=== PATIENT | male | born 1975 | race Caucasian/White ===

== ENCOUNTER 2018-12-21 12:26 | Emergency (ER) | payer BC, OTHER ==
[~2018-12-21] VITALS: Ht 180.3 cm; Wt 155.6 kg
--- OUTSIDE RECORDS SUMMARY | 2018-12-21 12:32 | XMS REPORT ---
Author Author JAMESONMAKICOSME Organization [facility] Address [address] [place] [address] Care Team Providers Care Padded Box Sewer Name Role Phone COSME BARBA Unavailable PROBLEMS Type Condition ICD9-CM Code [id number] Code Onset Dates Condition Status SNOMED Code Problem Primary osteoarthritis of right knee M17.11 Active 096256328 Problem Dental caries K02.9 Active 76221765 Problem Type 2 diabetes mellitus without complications E11.9 Active 46953382 Problem Low HDL (under 40) E78.6 Active 794494369 Problem Morbid (severe) obesity due to excess calories E66.01 Active 535206451 Problem Body mass index (BMI) of 50-59.9 in adult Z68.43 Active 702635234 Problem Tobacco abuse counseling Z71.6 Active 786494887 Problem Tobacco abuse Z72.0 Active 54458672 Problem Essential hypertension I10 Active 88834785 Problem Primary insomnia F51.01 Active 8328899 ALLERGIES No Known Allergies ENCOUNTERS Encounter Location Date Diagnosis [facility] [address] [place] [address]5064- 1196 Nov, [facility] [id number] [place] [address] 89765- 8680 Sep, [facility] [id number] [place] [address] 86422- 6022 Aug, Type 2 diabetes mellitus without complications E11.9 ; BMI 50.0-59.9, adult Z68.43 ; Essential hypertension I10 ; Primary osteoarthritis of right knee M17.11 and Primary insomnia F51.01 [facility] [id number] [place] [address] 50126- 4040 Aug, Type 2 diabetes mellitus without complications E11.9 [facility] [id number] [place] [address] 95540- 0336 Jul, [facility] [id number] [id number] May, Dental examination Z01.20 [facility] [address], [place] [address] May, Type 2 diabetes mellitus without complications E11.9 ; Essential hypertension I10 ; Dental caries K02.9 and Morbid obesity with BMI of 45.0-49.9, adult Z68.42 [place] [address], [place] [address] Apr, [place] [address] [place] [address] 28997- 4432 Apr, [place] [address], [place] [address] Mar, Type 2 diabetes mellitus without complications E11.9 [place] [address] [place] [address] 13219- 7202 Jan, Type 2 diabetes mellitus without complications E11.9 ; Tobacco abuse counseling Z71.6 ; Tobacco abuse Z72.0 ; Morbid obesity with BMI of 45.0-49.9, adult Z68.42 and Essential hypertension I10 [place] [address], [place] [address] Jan, [place] [address], [place] [address] December, [place] [address], [place] [address] Oct, [place] [address], [place] [address] 79[address] Oct, Type 2 diabetes mellitus without complications E11.9 ; Essential hypertension I10 ; Morbid obesity with BMI of 45.0-49.9, adult Z68.42 and Abscess L02.91 [place] [address], [place] [address] Sep, Type 2 diabetes mellitus without complications E11.9 [facility] [address], [place] [address] 8[address] Sep, Type 2 diabetes mellitus without complications E11.9 [facility] [address], [place] [address] 7[address] Aug, [facility] [address] [place] [address] 23313- 8590 Aug, [facility] [address], [place] [address] 97[address] Aug, [facility] [id number] [place] [address] 53073- 1431 Jul, [facility] [address], [place] [address] 60[address] Jun, Type 2 diabetes mellitus without complications E11.9 ; Morbid obesity with BMI of 45.0-49.9, adult Z68.42 ; Primary insomnia F51.01 and Abscess L02.91 [facility] [address], [place] [address] May, [facility] [address], [place] [address] 2[address] Apr, [facility] [address], [place] [address] 1466 Apr, [facility] [address], [place] [address] 8027 Feb, [facility] [address], [place] [address] 9[address] Jan, [facility] [address] [address] 5[address] Jan, [facility] [address], [place] [address] 3[address] Jan, [facility] [address], [place] [address]- [address] 14 Jan, 2016 Pain in right knee M25.561 and Other chronic pain G89.29 [facility] [address] [address] Jan, Morbid obesity with BMI of 45.0-49.9, adult Z68.42 ; Type 2 diabetes mellitus without complications E11.9 ; Pain in right knee M25.561 and Other chronic pain G89.29 [facility] [address], [place] [address] Jan, [facility] [address], [place] [address] December, [facility] [address], [place] [address] 09[address] December, [facility] [address], [place] [address]- 3469 December, [facility] [address], [place] [address] 9[address] December, [facility] [address], [place] [address] December, [facility] [address], [place] [address] 60[address] December, Routine health maintenance Z00.00 ; Morbid obesity with BMI of 45.0-49.9, adult Z68.42 ; Type 2 diabetes mellitus without complications E11.9 ; Anxiety F41.9 ; Dental caries K02.9 ; Family history of diabetes mellitus Z83.3 ; Family history of hypertension Z82.49 ; Family history of cancer Z80.9 ; Tobacco abuse counseling Z71.6 and Tobacco abuse Z72.0 IMMUNIZATIONS No Known Immunizations SOCIAL HISTORY Never Assessed REASON FOR VISIT Diabetes, no other concerns- Mk CLINE PLAN OF CARE Activity Details Follow Up 3 Months Reason:DM visit VITAL SIGNS Height 70 in 2017-02-06 Weight 348.2 lbs 2017-02-06 Temperature 98.5 degrees Fahrenheit 2017-02-06 Heart Rate 74 bpm 2017-02-06 Respiratory Rate 18 2017-02-06 BMI 49.96 kg/m2 2017-02-06 Blood pressure systolic 128 mmHg 2017-02-06 Blood pressure diastolic 80 mmHg 2017-02-06 MEDICATIONS Medication Instructions Dosage Frequency Start Date End Date Duration Status GlipiZIDE 10 mg Orally Once a day at hs 1 tablet Jan, 90 days Active Cozaar 25 MG Orally Once a day 1/2 tablet 24h Jan, Active GlipiZIDE 5 mg Orally Once a day 2 tablet 24h 90 days Active Metformin HCl 1000 MG Orally Twice a day 1 tablet with meals 12h 90 days Active Toudereko SoloStar 300 UNIT/ML Subcutaneous at bedtime 50 units Active RESULTS Name Result Date Reference Range A1C (IN HOUSE) 2017-02-06 A1C IN HOUSE 8.7 4.3 - 5.6 % Previous A1c 8.1 Lot 0716 Exp date 10/2018 THYROID ANALYZER 2017-02-06 TSH 1.970 0.450-4.500 CBC 2017-02-06 WBC 9.9 3.4-10.8 RBC 5.01 4.14-5.80 Hemoglobin 14.2 12.6-17.7 Hematocrit 43.7 37.5-51.0 MCV 87 79-97 MCH 28.3 26.6-33.0 MCHC 32.5 31.5-35.7 RDW 13.6 12.3-15.4 Platelets 201 150-379 Neutrophils 67 Lymphs 21 Monocytes 7 Eos 5 Basos 0 Neutrophils (Absolute) 6.6 1.4-7.0 Lymphs (Absolute) 2.1 0.7-3.1 Monocytes(Absolute) 0.7 0.1-0.9 Eos (Absolute) 0.5 0.0-0.4 Baso (Absolute) 0.0 0.0-0.2 Immature Granulocytes 0 Immature Grans (Abs) 0.0 0.0-0.1 LIPID PANEL 2017-02-06 Cholesterol, Total 137 100-199 Triglycerides 124 0-149 HDL Cholesterol 28 >39 VLDL Cholesterol Jhony 25 5-40 LDL Cholesterol Calc 84 0-99 CMP 2017-02-06 Glucose, Serum 159 65-99 BUN 9 6-24 Creatinine, Serum 0.77 0.76-1.27 eGFR If NonAfricn Am 111 >59 eGFR If Africn Am 128 >59 BUN/Creatinine Ratio 12 9-20 Sodium, Serum 142 134-144 Potassium, Serum 4.8 3.5-5.2 Chloride, Serum 102 96-106 Carbon Dioxide, Total 22 18-29 Calcium, Serum 9.3 8.7-10.2 Protein, Total, Serum 6.5 6.0-8.5 Albumin, Serum 4.3 3.5-5.5 Globulin, Total 2.2 1.5-4.5 A/G Ratio 2.0 1.2-2.2 Bilirubin, Total 0.5 0.0-1.2 Alkaline Phosphatase, S 79 39-117 AST (SGOT) 25 0-40 ALT (SGPT) 20 0-44 PROCEDURES Procedure Date Ordered Result Body Site GLYCATED HEMOGLOBIN TEST February 06, 2017 COMPLETE CBC W/AUTO DIFF WBC February 06, 2017 VENIPUNCT, ROUTINE* February 06, 2017 ASSAY THYROID STIM HORMONE February 06, 2017 COMPREHEN METABOLIC PANEL February 06, 2017 LIPID PANEL February 06, 2017 INSTRUCTIONS MEDICATIONS ADMINISTERED No Known Medications MEDICAL (GENERAL) HISTORY Type Description Date Medical History diabetes mellitus Medical History depression Medical History hypertension Medical History Anxiety Surgical History skin infection removal- fungal type-was on microfungin and wound vac to the right abdomen- one also on the left abdomen Hospitalization History Surgery only
--- OUTSIDE RECORDS SUMMARY | 2018-12-21 12:33 | XMS REPORT ---
Author Author JAMESONCOSME Organization [facility] Address [address] [place] [address] Care Team Providers Care Global Supply Chain Director Name Role Phone COSME BARBA Unavailable PROBLEMS Type Condition ICD9-CM Code EPG24-ET Code Onset Dates Condition Status SNOMED Code Problem Primary osteoarthritis of right knee M17.11 Active 389356852 Problem Dental caries K02.9 Active 81590510 Problem Type 2 diabetes mellitus without complications E11.9 Active 14599205 Problem Low HDL (under 40) E78.6 Active 115068331 Problem Morbid (severe) obesity due to excess calories E66.01 Active 848728505 Problem Body mass index (BMI) of 50-59.9 in adult Z68.43 Active 732122249 Problem Tobacco abuse counseling Z71.6 Active 880465096 Problem Tobacco abuse Z72.0 Active 49814188 Problem Essential hypertension I10 Active 11360025 Problem Primary insomnia F51.01 Active 7861964 ALLERGIES No Information ENCOUNTERS Encounter Location Date Diagnosis [place] [address] [place] [address] 36716- 9863 Mar, [place] [id number] [place] [address] 20219- 8457 December, Type 2 diabetes mellitus without complications E11.9 [facility] [id number] [place] [address] 41505- 5157 December, [place] [address] [address]- 2809 Nov, Type 2 diabetes mellitus without complications E11.9 [place] [id number] [place] [address] 91168- 9637 Nov, Type 2 diabetes mellitus without complications E11.9 ; BMI 45.0-49.9, adult Z68.42 ; Essential hypertension I10 ; Tobacco abuse Z72.0 and Tobacco abuse counseling Z71.6 [place] [id number] [place] [address] 71768- 0981 Nov, Type 2 diabetes mellitus without complications E11.9 [place] [id number] [place] [address] 30680- 2219 Sep, [place] [address] [address]- 1262 Aug, Type 2 diabetes mellitus without complications E11.9 ; BMI 50.0-59.9, adult Z68.43 ; Essential hypertension I10 ; Primary osteoarthritis of right knee M17.11 and Primary insomnia F51.01 [place] [id number] [place] [address] 71163- 6450 Aug, Type 2 diabetes mellitus without complications E11.9 [place] [id number] [place] [address] 06176- 0277 Jul, [facility] [id number] [place] [address] [id number] May, Dental examination Z01.20 [place] [id number] [place] [address] 10288- 5624 May, Type 2 diabetes mellitus without complications E11.9 ; Essential hypertension I10 ; Dental caries K02.9 and Morbid obesity with BMI of 45.0-49.9, adult Z68.42 [place] [id number] [place] [address] 62847- 9306 Apr, [place] [id number] [place] [address] 95988- 4390 Apr, [place] [id number] [place] [address] 08010- 5493 Mar, Type 2 diabetes mellitus without complications E11.9 [place] [id number] [place] [address] 82442- 7782 Jan, Type 2 diabetes mellitus without complications E11.9 ; Tobacco abuse counseling Z71.6 ; Tobacco abuse Z72.0 ; Morbid obesity with BMI of 45.0-49.9, adult Z68.42 and Essential hypertension I10 [place] [id number] [place] [address] 29380567- 0566 Jan, [facility] [id number] [place] [address] 70059- 1720 December, [place] [id number] [place] [address] 32941- 2798 Oct, [place] [id number] [place] [address] 80292- 7377 Oct, Type 2 diabetes mellitus without complications E11.9 ; Essential hypertension I10 ; Morbid obesity with BMI of 45.0-49.9, adult Z68.42 and Abscess L02.91 [place] [id number] [place] [address] 28498- 1413 Sep, Type 2 diabetes mellitus without complications E11.9 [place] [id number] [place] [address] 50595- 6153 Sep, Type 2 diabetes mellitus without complications E11.9 [place] [id number] [place] [address] 80864- 6193 Aug, [place] [address], [place] [address]- 7908 Aug, [place] [address], [place] [address]- 9054 Aug, [place] [address], [place] [address]- 4672 Jul, [place] [id number] [place] [address] 45577- 3686 Jun, Type 2 diabetes mellitus without complications E11.9 ; Morbid obesity with BMI of 45.0-49.9, adult Z68.42 ; Primary insomnia F51.01 and Abscess L02.91 [place] [address] [place] May, [facility] [address] [address]69 Apr, [facility] [address] [facility] [id number] [address] Apr, [facility] [address] [address] Feb, [facility] [id number], [place] [address]- 2187 Jan, [facility] [address] 8498 Jan, [facility] [address], [place] [address]- 4231 Jan, [facility] [address], [place] [address]- 4119 Jan, Pain in right knee M25.561 and Other chronic pain G89.29 [facility] [id number], [place] [address]- 8632 Jan, Morbid obesity with BMI of 45.0-49.9, adult Z68.42 ; Type 2 diabetes mellitus without complications E11.9 ; Pain in right knee M25.561 and Other chronic pain G89.29 [facility] [id number], [place] [address]- 5534 Jan, [facility] [id number], [place] [address]- 8473 December, [facility] [address] 0797 December, [facility] [address] 35[address] December, [facility] [id number] 7696 December, [facility] [address] [facility] [place] [id number] [address]- 5689 December, [facility] [address] [facility] [place] [id number] [address] 1989 December, Routine health maintenance Z00.00 ; Morbid [...] SOCIAL HISTORY Never Assessed REASON FOR VISIT PALS in - Touo PLAN OF CARE VITAL SIGNS MEDICATIONS Unknown Medications RESULTS No Results PROCEDURES No Known procedures INSTRUCTIONS MEDICATIONS ADMINISTERED No Known Medications MEDICAL (GENERAL) HISTORY Type Description Date Medical History diabetes mellitus Medical History depression Medical History hypertension Medical History Anxiety Surgical History skin infection removal- fungal type-was on microfungin and wound vac to the right abdomen- one also on the left abdomen Hospitalization History Surgery only
--- OUTSIDE RECORDS SUMMARY | 2018-12-21 12:33 | XMS REPORT ---
Author Author COSME BARBA Organization [facility] Address [address] [place] [address] Care Team Providers Care Manager Purchasing Name Role Phone BARBACOSME Rhodes Unavailable PROBLEMS Type Condition ICD9-CM Code GOQ03-EP Code Onset Dates Condition Status SNOMED Code Problem Dental caries K02.9 Active 95797140 Problem Tobacco abuse counseling Z71.6 Active 455877209 Problem Tobacco abuse Z72.0 Active 93965665 Problem Low HDL (under 40) E78.6 Active 204093352 Problem Primary osteoarthritis of right knee M17.11 Active 461138500 Problem Type 2 diabetes mellitus with hyperglycemia E11.65 Active 61510488 Problem Morbid (severe) obesity due to excess calories E66.01 Active 009730327 Problem Essential hypertension I10 Active 49785758 Problem Primary insomnia F51.01 Active 6128805 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 Active 841162090 Problem Body mass index (BMI) of 45.0-49.9 in adult Z68.42 Active 062407941 ALLERGIES No Information ENCOUNTERS Encounter Location Date Diagnosis [place] [id number] [place] [address]- [address]209 Apr, [facility] [id number] [place] [address] 50997- 1297 Mar, Type 2 diabetes mellitus with hyperglycemia E11.65 ; USP current use of insulin Z79.4 ; Body mass index (BMI) of 45.0-49.9 in adult Z68.42 ; Morbid (severe) obesity due to excess calories E66.01 ; Low HDL (under 40) E78.6 ; Right flank pain R10.9 and Essential hypertension I10 [facility] [id number] [address] December, Type 2 diabetes mellitus without complications E11.9 [place] [address] [address] December, [place] [address] [address] [id number] [place] [address] 69071- 8071 Nov, Type 2 diabetes mellitus without complications E11.9 [place] [address] [place] [id number] [place] [address] 40877- 4544 Nov, Type 2 diabetes mellitus without complications E11.9 ; BMI 45.0-49.9, adult Z68.42 ; Essential hypertension I10 ; Tobacco abuse Z72.0 and Tobacco abuse counseling Z71.6 [place] [address] [address] [id number] [place] [address] 65579- 2241 Nov, Type 2 diabetes mellitus without complications E11.9 [place] [address] [id number] [place] [address] 81512- 4923 Sep, [place] [address] [address] [id number] [place] [address] 50037- 6056 Aug, Type 2 diabetes mellitus without complications E11.9 ; BMI 50.0-59.9, adult Z68.43 ; Essential hypertension I10 ; Primary osteoarthritis of right knee M17.11 and Primary insomnia F51.01 [place] [address] [address] [id number] [place] [address] 82013- 7344 Aug, Type 2 diabetes mellitus without complications E11.9 [place] [address], [place] [address] Jul, [facility] [address] [place] [address] [id number] May, Dental examination Z01.20 [place] [address] [address] [id number] [place] [address] 68397- 2676 May, Type 2 diabetes mellitus without complications E11.9 ; Essential hypertension I10 ; Dental caries K02.9 and Morbid obesity with BMI of 45.0-49.9, adult Z68.42 [place] [address] [address] [id number] [place] [address] 58041- 1626 Apr, [facility] [address], [place] [address] 90[address] Apr, [facility] [address] [place] [address] 91099- 1175 Mar, Type 2 diabetes mellitus without complications E11.9 [facility] [id number] [place] [address] 71681- 7893 Jan, Type 2 diabetes mellitus without complications E11.9 ; Tobacco abuse counseling Z71.6 ; Tobacco abuse Z72.0 ; Morbid obesity with BMI of 45.0-49.9, adult Z68.42 and Essential hypertension I10 [place] [address] [id number] [place] [address] 50159- 4102 Jan, [facility] [id number] [place] [address] 50749- 4058 December, [facility] [id number] [place] [address] 82543- 2070 Oct, [facility] [address] [place] [address] 08359- 8363 Oct, Type 2 diabetes mellitus without complications E11.9 ; Essential hypertension I10 ; Morbid obesity with BMI of 45.0-49.9, adult Z68.42 and Abscess L02.91 [facility] [address], [place] [address] 22[address] Sep, Type 2 diabetes mellitus without complications E11.9 [facility] [address], [place] [address] 9568 Sep, Type 2 diabetes mellitus without complications E11.9 [facility] [id number], [place] [address] 7[address] Aug, [facility] [address], [place] [address] 0143 Aug, [facility] [id number] [place] [address] 86366- 2051 Aug, [facility] [address], [place] [address] 7278 Jul, [facility] [address], [place] [address] 8723 Jun, Type 2 diabetes mellitus without complications E11.9 ; Morbid obesity with BMI of 45.0-49.9, adult Z68.42 ; Primary insomnia F51.01 and Abscess L02.91 [facility] [address], [place] [address] 48[address] May, [facility] [id number] [place] [address] 64230- 0340 Apr, [facility] [id number] [place] [address] 34452- 8755 Apr, [facility] [id number] [place] [address] 29965- 1252 Feb, [facility] [address], [place] [address]- 4991 Jan, [facility] [id number], [place] [address] 5517 Jan, [facility] [address], [place] [address]- 8091 Jan, [facility] [address] [place] [address]- 4608 14 Jan, 2016 Pain in right knee M25.561 and Other chronic pain G89.29 [facility] [address], [place] [address] 7162 03 Jan, 2016 Morbid obesity with BMI of 45.0-49.9, adult Z68.42 ; Type 2 diabetes mellitus without complications E11.9 ; Pain in right knee M25.561 and Other chronic pain G89.29 [facility] [address], [place] [address]- 4335 Jan, [facility] [address] [facility] [id number], [place] [address] 2[address] December, [facility] [id number], [place] [address] 4431 December, [facility] [id number], [place] [address]- 4495 December, [facility] [address] [facility] [id number], [place] [address]- 2267 December, [facility] [address] [facility] [id number], [place] [address]- 6288 December, [facility] [id number], [place] [address] 0721 December, Routine health maintenance Z00.00 ; Morbid [...] Assessed [facility] VITAL SIGNS MEDICATIONS Unknown [...]
--- OUTSIDE RECORDS SUMMARY | 2018-12-21 12:33 | XMS REPORT ---
Author Author COSME BARBA Organization [facility] Address [address] [place] [address] Care Team Providers Care Medical Bill Processor Name Role Phone BARBACOSME Rhodes Unavailable PROBLEMS Type Condition ICD9-CM Code KIQ64-LD Code Onset Dates Condition Status SNOMED Code Problem Dental caries K02.9 Active 42742077 Problem Tobacco abuse counseling Z71.6 Active 028319231 Problem Tobacco abuse Z72.0 Active 24101532 Problem Low HDL (under 40) E78.6 Active 768525270 Problem Primary osteoarthritis of right knee M17.11 Active 127047071 Problem Type 2 diabetes mellitus with hyperglycemia E11.65 Active 75298400 Problem Morbid (severe) obesity due to excess calories E66.01 Active 317375931 Problem Essential hypertension I10 Active 08490590 Problem Primary insomnia F51.01 Active 1275166 Problem terminal supervisor current use of insulin Z79.4 Active 423160286 Problem Body mass index (BMI) of 45.0-49.9 in adult Z68.42 Active 665781613 ALLERGIES No Known Allergies ENCOUNTERS Encounter Location Date Diagnosis [facility] [address] [address]- 09[address] Apr, [facility] [address] [place] [address] 58984- 9730 Mar, Type 2 diabetes mellitus with hyperglycemia E11.65 ; terminal supervisor current use of insulin Z79.4 ; Body mass index (BMI) of 45.0-49.9 in adult Z68.42 ; Morbid (severe) obesity due to excess calories E66.01 ; Low HDL (under 40) E78.6 ; Right flank pain R10.9 and Essential hypertension I10 [facility] [address] [place] [id number] [address]- 9907 December, Type 2 diabetes mellitus without complications E11.9 [place] [address] [address]- 0167 December, [place] [address] [place] [id number] [place] [address] 27992- 4518 Nov, Type 2 diabetes mellitus without complications E11.9 [place] [address] [place] [id number] [place] [address] 73853- 7851 Nov, Type 2 diabetes mellitus without complications E11.9 ; BMI 45.0-49.9, adult Z68.42 ; Essential hypertension I10 ; Tobacco abuse Z72.0 and Tobacco abuse counseling Z71.6 [place] [address] [address] [id number] [place] [address] 50283- 5359 Nov, Type 2 diabetes mellitus without complications E11.9 [place] [address] [place] [id number] [place] [address] 79056- 2512 Sep, [place] [address] [place] [id number] [place] [address] 80073- 7977 Aug, Type 2 diabetes mellitus without complications E11.9 ; BMI 50.0-59.9, adult Z68.43 ; Essential hypertension I10 ; Primary osteoarthritis of right knee M17.11 and Primary insomnia F51.01 [place] [address] [place] [address] 03544- 5242 Aug, Type 2 diabetes mellitus without complications E11.9 [place] [address] [address]- 3322 Jul, [facility] [address] [place] [address] [id number] May, Dental examination Z01.20 [place] [address] [place] [id number] [place] [address] 86932- 2305 May, Type 2 diabetes mellitus without complications E11.9 ; Essential hypertension I10 ; Dental caries K02.9 and Morbid obesity with BMI of 45.0-49.9, adult Z68.42 [place] [address] [place] [id number] [place] [address] 72149- 9304 Apr, [facility] [address], [place] [address]- 4578 Apr, [facility] [address] [place] [address] 68592- 7338 Mar, Type 2 diabetes mellitus without complications E11.9 [facility] [id number] [place] [address] 06372- 7844 Jan, Type 2 diabetes mellitus without complications E11.9 ; Tobacco abuse counseling Z71.6 ; Tobacco abuse Z72.0 ; Morbid obesity with BMI of 45.0-49.9, adult Z68.42 and Essential hypertension I10 [facility] [id number] [place] [address] 08188- 2010 Jan, [facility] [address] [address] [id number] [place] [address] 25212- 7832 December, [facility] [address] [address] [id number] [place] [address] 96429- 6181 Oct, [facility] [address] [place] [address] 35482- 0023 Oct, Type 2 diabetes mellitus without complications E11.9 ; Essential hypertension I10 ; Morbid obesity with BMI of 45.0-49.9, adult Z68.42 and Abscess L02.91 [facility] [address], [place] [address]- 5795 Sep, Type 2 diabetes mellitus without complications E11.9 [facility] [address] [address]- 4702 Sep, Type 2 diabetes mellitus without complications E11.9 [facility] [address] [address]- 1942 Aug, [facility] [address] [address]- 2341 Aug, [facility] [id number] [place] [address] 52986- 1010 Aug, [facility] [address], [place] [address]- 5690 Jul, [facility] [address], [place] [address]- 4088 Jun, Type 2 diabetes mellitus without complications E11.9 ; Morbid obesity with BMI of 45.0-49.9, adult Z68.42 ; Primary insomnia F51.01 and Abscess L02.91 [facility] [address], [place] [address]- 7481 May, [facility] [id number] [place] [address] 15869- 6627 Apr, [facility] [address] [address]- 5285 Apr, [facility] [address], [place] [address]- 3850 Feb, [facility] [address], [place] [address]- 3256 Jan, [facility] [address], [place] [address]- 8404 Jan, [facility] [address] [address]- 7631 Jan, [facility] [address] [address]- 8491 14 Jan, 2016 Pain in right knee M25.561 and Other chronic pain G89.29 [facility] [address] [id number] [address]- 0584 03 Jan, 2016 Morbid obesity with BMI of 45.0-49.9, adult Z68.42 ; Type 2 diabetes mellitus without complications E11.9 ; Pain in right knee M25.561 and Other chronic pain G89.29 [facility] [address], [place] [address]- 2987 Jan, [facility] [address] [facility] [id number] [address]- 1591 December, [facility] [address] [id number] [address]- 4094 December, [facility] [id number] [address]- 6650 December, [facility] [address] [address]- 0214 December, [facility] [id number] [address]- 6469 December, [facility] [id number] [address]- 9604 December, Routine health maintenance Z00.00 ; Morbid [...] SOCIAL HISTORY Never Assessed REASON FOR VISIT Diabetes----ThomasttROSY, A1C PLAN OF CARE Activity Details Follow Up 3 Months, prn Reason:CHM/DM VITAL SIGNS Height 70 in 2018-04-01 Weight 330 lbs 2018-04-01 Temperature 98.5 degrees Fahrenheit 2018-04-01 Heart Rate 70 bpm 2018-04-01 Respiratory Rate 20 2018-04-01 BMI 47.34 kg/m2 2018-04-01 Blood pressure systolic 128 mmHg 2018-04-01 Blood pressure diastolic 88 mmHg 2018-04-01 MEDICATIONS Medication Instructions Dosage Frequency Start Date End Date Duration Status Multi Vitamin Orally Once a day 1 tablet 24h Active Zinc 50 MG Orally 2 times a day 1 tablet 12h Active Glucocard Expression Test 1 subcutaneously 2 times a day test 2 times per day 12h May, Active GlipiZIDE 10 mg Orally 2 times a day 1 tablet 12h Jan, Active Glucocard Expression Test - In Vitro 2 times a day as directed h May, Active Metformin HCl 1000 MG TAKE ONE TABLET BY MOUTH TWICE DAILY WITH MEALS Active Sitagliptin Phosphate 100 mg Orally Once a day 1 tablet 24h Active Toujeo SoloStar 300 UNIT/ML Subcutaneous at bedtime-with pen needles 60 units Active Cozaar 25 MG Orally Once a day 1/2 tablet 24h Jan, Active RESULTS Name Result Date Reference Range A1C (IN HOUSE) 2018-04-01 A1C IN HOUSE 7.7 4.3 - 5.6 % Previous A1c 8.2 Lot [id number] Exp date 11/06 UA LONG DIP (IN HOUSE) 2018-04-01 Lot # [id number] Exp date 11/2018 Clarity Clear Color Dark Yellow Odor None GLU Negative TANK 1+ KET Trace SG >=1.030 BLO Negative pH 5.5 Protein 1+ URO 0.2 NIT Negative SUZIE Negative Lot # Exp date PROCEDURES Procedure Date Ordered Result Body Site GLYCATED HEMOGLOBIN TEST Apr 01, 2018 URINALYSIS, AUTO, W/O SCOPE Apr 01, 2018 INSTRUCTIONS MEDICATIONS ADMINISTERED No Known Medications MEDICAL (GENERAL) HISTORY Type Description Date Medical History diabetes mellitus Medical History depression Medical History hypertension Medical History Anxiety Surgical History skin infection removal- fungal type-was on microfungin and wound vac to the right abdomen- one also on the left abdomen Hospitalization History Surgery only
--- OUTSIDE RECORDS SUMMARY | 2018-12-21 12:33 | XMS REPORT ---
Author Author JAMESONMAKICOSME Organization [facility] Address [address] [place] [address] Care Team Providers Care Transaction Manager Name Role Phone COSME BARBA Unavailable PROBLEMS Type Condition ICD9-CM Code DVQ61-LT Code Onset Dates Condition Status SNOMED Code Problem Primary osteoarthritis of right knee M17.11 Active 353584049 Problem Dental caries K02.9 Active 98735333 Problem Type 2 diabetes mellitus without complications E11.9 Active 53572585 Problem Low HDL (under 40) E78.6 Active 012820224 Problem Morbid (severe) obesity due to excess calories E66.01 Active 387253939 Problem Body mass index (BMI) of 50-59.9 in adult Z68.43 Active 359893690 Problem Tobacco abuse counseling Z71.6 Active 606207553 Problem Tobacco abuse Z72.0 Active 48904675 Problem Essential hypertension I10 Active 22354260 Problem Primary insomnia F51.01 Active 1826924 ALLERGIES No Known Allergies ENCOUNTERS Encounter Location Date Diagnosis [place] [address] [place] [address] 55111- 9118 Mar, [place] [address] [place] [id number] [place] [address] 94346- 2743 December, Type 2 diabetes mellitus without complications E11.9 [facility] [id number] [place] [address] 61105- 3760 December, [place] [address] 89711- 4736 Nov, Type 2 diabetes mellitus without complications E11.9 [place] [address] [place] [id number] [place] [address] 45705- 4963 Nov, Type 2 diabetes mellitus without complications E11.9 ; BMI 45.0-49.9, adult Z68.42 ; Essential hypertension I10 ; Tobacco abuse Z72.0 and Tobacco abuse counseling Z71.6 [place] [id number] [place] [address] 31310- 6446 Nov, Type 2 diabetes mellitus without complications E11.9 [place] [address] [id number] [place] [address] 58448- 3105 Sep, [place] [address] 34440- 8706 Aug, Type 2 diabetes mellitus without complications E11.9 ; BMI 50.0-59.9, adult Z68.43 ; Essential hypertension I10 ; Primary osteoarthritis of right knee M17.11 and Primary insomnia F51.01 [place] [address] [address] [id number] [place] [address] 05256- 5976 Aug, Type 2 diabetes mellitus without complications E11.9 [place] [address] [id number] [place] [address] 93678- 6517 07 Jul, 2017 [facility] [id number] [place] [address] [id number] May, Dental examination Z01.20 [place] [address] [address] [id number] [place] [address] 33350- 7185 12 May, 2017 Type 2 diabetes mellitus without complications E11.9 ; Essential hypertension I10 ; Dental caries K02.9 and Morbid obesity with BMI of 45.0-49.9, adult Z68.42 [place] [address] [id number] [place] [address] 95197- 0513 Apr, [place] [address] [place] [address] [id number] [place] [address] 70772- 7609 Apr, [place] [address] [place] [address] [id number] [place] [address] 14498- 1774 Mar, Type 2 diabetes mellitus without complications E11.9 [place] [address] [place] [address] 66160- 0257 Jan, Type 2 diabetes mellitus without complications E11.9 ; Tobacco abuse counseling Z71.6 ; Tobacco abuse Z72.0 ; Morbid obesity with BMI of 45.0-49.9, adult Z68.42 and Essential hypertension I10 [place] [address] [id number] [place] [address] 99309- 2131 Jan, [facility] [address] [id number] [place] [address] 12313- 6409 December, [place] [address] [address] [id number] [place] [address] 34273- 1303 Oct, [place] [address] [address] [id number] [place] [address] 13980- 7213 Oct, Type 2 diabetes mellitus without complications E11.9 ; Essential hypertension I10 ; Morbid obesity with BMI of 45.0-49.9, adult Z68.42 and Abscess L02.91 [place] [address] [place] [address] [id number] [place] [address] 59696- 2152 Sep, Type 2 diabetes mellitus without complications E11.9 [place] [address] [address] [id number] [place] [address] 28524- 3370 Sep, Type 2 diabetes mellitus without complications E11.9 [place] [address] [place] [address] 89901- 4878 Aug, [place] [address] [address]- 7918 Aug, [place] [address] [place] [address] 30054- 9771 Aug, [facility] [address] [address]- 9846 Jul, [facility] [address] [id number] [place] [address] 60137- 0552 Jun, Type 2 diabetes mellitus without complications E11.9 ; Morbid obesity with BMI of 45.0-49.9, adult Z68.42 ; Primary insomnia F51.01 and Abscess L02.91 [place] [address] [place] [id number]- 6442 May, [facility] [address] [facility] [id number] [address]- 2228 Apr, [facility] [address] [facility] [id number] 0094 Apr, [facility] [address] [address]- 3722 Feb, [facility] [address] [facility] [id number] [address]- 6488 Jan, [facility] [address] 1323 Jan, [facility] [address] [address]- 4962 Jan, [facility] [address] [address]- 4327 Jan, Pain in right knee M25.561 and Other chronic pain G89.29 [facility] [address] [address]- 3402 Jan, Morbid obesity with BMI of 45.0-49.9, adult Z68.42 ; Type 2 diabetes mellitus without complications E11.9 ; Pain in right knee M25.561 and Other chronic pain G89.29 [facility] [address] [address]- 0503 Jan, [facility] [address] [address]- 1016 December, [facility] [address] 0247 December, [facility] [address] 5538 December, [facility] [address] [address]- 3875 December, [facility] [address] [facility] [id number] [place] [address]- 8749 December, [facility] [address] [facility] [id number] [address]- 6106 December, Routine health maintenance Z00.00 ; Morbid [...] SOCIAL HISTORY Never Assessed REASON FOR VISIT Diabetes. ROSY Chung, Cough and cold. PLAN OF CARE Activity Details Follow Up 3 Months Reason:DM f/u VITAL SIGNS Height 70 in 2017-12-10 Weight 339.2 lbs 2017-12-10 Temperature 98.9 degrees Fahrenheit 2017-12-10 Heart Rate 88 bpm 2017-12-10 Respiratory Rate 20 2017-12-10 BMI 48.66 kg/m2 2017-12-10 Blood pressure systolic 120 mmHg 2017-12-10 Blood pressure diastolic 82 mmHg 2017-12-10 MEDICATIONS Medication Instructions Dosage Frequency Start Date End Date Duration Status Esvinkaterineross Susan 300 UNIT/ML Subcutaneous at bedtime 60 units Active Metformin HCl 1000 MG Orally Twice a day 1 tablet with meals 12h Active Sitagliptin Phosphate 100 mg Orally Once a day 1 tablet 24h 90 days Active Cozaar 25 MG Orally Once a day 1/2 tablet 24h Jan, 30 days Active Glucocard Expression Test - In Vitro 2 times a day as directed 12h May, 25 days Active GlipiZIDE 10 mg Orally 2 times a day 1 tablet 12h Jan, Active Zinc 50 MG Orally 2 times a day 1 tablet 12h Active Glucocard Expression Test 1 subcutaneously 2 times a day test 2 times per day 12h May, 12 months Active Multi Vitamin Orally Once a day 1 tablet 24h Active RESULTS Name Result Date Reference Range A1C (IN HOUSE) 2017-12-10 A1C IN HOUSE 8.2 4.3 - 5.6 % Previous A1c 8.9 Lot [id number] Exp date 09/2019 PROCEDURES Procedure Date Ordered Result Body Site GLYCATED HEMOGLOBIN TEST December 10, 2017 INSTRUCTIONS MEDICATIONS ADMINISTERED No Known Medications MEDICAL (GENERAL) HISTORY Type Description Date Medical History diabetes mellitus Medical History depression Medical History hypertension Medical History Anxiety Surgical History skin infection removal- fungal type-was on microfungin and wound vac to the right abdomen- one also on the left abdomen Hospitalization History Surgery only
--- OUTSIDE RECORDS SUMMARY | 2018-12-21 12:33 | XMS REPORT ---
Author Author JAMESONCOSME Organization [facility] Address [address] [place] [address] Care Team Providers Care Supervisor [employer] Name Role Phone COSME BARBA Unavailable PROBLEMS Type Condition ICD9-CM Code EQZ00-GW Code Onset Dates Condition Status SNOMED Code Problem Primary osteoarthritis of right knee M17.11 Active 830955901 Problem Dental caries K02.9 Active 01664249 Problem Type 2 diabetes mellitus without complications E11.9 Active 94797023 Problem Low HDL (under 40) E78.6 Active 394905250 Problem Morbid (severe) obesity due to excess calories E66.01 Active 138540420 Problem Body mass index (BMI) of 50-59.9 in adult Z68.43 Active 266510872 Problem Tobacco abuse counseling Z71.6 Active 489371246 Problem Tobacco abuse Z72.0 Active 27408663 Problem Essential hypertension I10 Active 34104616 Problem Primary insomnia F51.01 Active 7397809 ALLERGIES No Information ENCOUNTERS Encounter Location Date Diagnosis [place] [address] [place] [address] 68948- 1856 Mar, [place] [address] [place] [id number] [place] [address] 88884- 5759 December, Type 2 diabetes mellitus without complications E11.9 [facility] [address] [place] [id number] [place] [address] 57404- 4104 December, [place] [address] 15662- 2971 Nov, Type 2 diabetes mellitus without complications E11.9 [place] [address] [place] [id number] [place] [address] 73855- 2080 Nov, Type 2 diabetes mellitus without complications E11.9 ; BMI 45.0-49.9, adult Z68.42 ; Essential hypertension I10 ; Tobacco abuse Z72.0 and Tobacco abuse counseling Z71.6 [place] [address] [place] [id number] [place] [address] 98811- 2289 Nov, Type 2 diabetes mellitus without complications E11.9 [place] [address] [place] [id number] [place] [address] 88610- 2065 Sep, [place] [address] 55155- 2186 Aug, Type 2 diabetes mellitus without complications E11.9 ; BMI 50.0-59.9, adult Z68.43 ; Essential hypertension I10 ; Primary osteoarthritis of right knee M17.11 and Primary insomnia F51.01 [place] [address] [place] [id number] [place] [address] 67094- 0975 Aug, Type 2 diabetes mellitus without complications E11.9 [place] [address] [place] [id number] [place] [address] 49884- 8895 Jul, [facility] [address] [place] [address] [id number] [place] [address] [id number] May, Dental examination Z01.20 [place] [address] [place] [id number] [place] [address] 87959- 0687 May, Type 2 diabetes mellitus without complications E11.9 ; Essential hypertension I10 ; Dental caries K02.9 and Morbid obesity with BMI of 45.0-49.9, adult Z68.42 [place] [address] [place] [id number] [place] [address] 96970- 2348 Apr, [place] [address] [place] [id number] [place] [address] 68599- 7693 Apr, [place] [address] [place] [id number] [place] [address] 98495- 1937 Mar, Type 2 diabetes mellitus without complications E11.9 [place] [address] [place] [id number] [place] [address] 41063- 8064 Jan, Type 2 diabetes mellitus without complications E11.9 ; Tobacco abuse counseling Z71.6 ; Tobacco abuse Z72.0 ; Morbid obesity with BMI of 45.0-49.9, adult Z68.42 and Essential hypertension I10 [place] [address] [place] [id number] [place] [address] 70085943- 8365 Jan, [facility] [address] [place] [id number] [place] [address] 49051- 8701 December, [place] [address] [place] [id number] [place] [address] 98744- 7061 Oct, [place] [address] [place] [id number] [place] [address] 55639- 4352 Oct, Type 2 diabetes mellitus without complications E11.9 ; Essential hypertension I10 ; Morbid obesity with BMI of 45.0-49.9, adult Z68.42 and Abscess L02.91 [place] [address] [place] [address] [place] [address] 96802- 3031 Sep, Type 2 diabetes mellitus without complications E11.9 [place] [address] [place] [id number] [place] [address] 99571- 1423 Sep, Type 2 diabetes mellitus without complications E11.9 [place] [address] [place] [id number] [place] [address] 65743- 9839 Aug, [place] [address] [id number] [address]- 6322 Aug, [place] [address], [place] [address]- 2964 Aug, [place] [address], [place] [address]- 4527 Jul, [place] [address] [place] [id number] [place] [address] 08200- 7050 Jun, Type 2 diabetes mellitus without complications E11.9 ; Morbid obesity with BMI of 45.0-49.9, adult Z68.42 ; Primary insomnia F51.01 and Abscess L02.91 [place] [address] [place] 6669 May, [facility] [address] 0137 Apr, [facility] [address] [facility] [id number] 6392 Apr, [facility] [address] 2166 Feb, [facility] [address] [place] [id number], [place] [address]- 0349 Jan, [facility] [address]- 0238 Jan, [facility] [address], [place] [address]- 0560 Jan, [facility] [address], [place] [address]- 4487 Jan, Pain in right knee M25.561 and Other chronic pain G89.29 [facility] [address] [place] [id number], [place] [address]- 0312 Jan, Morbid obesity with BMI of 45.0-49.9, adult Z68.42 ; Type 2 diabetes mellitus without complications E11.9 ; Pain in right knee M25.561 and Other chronic pain G89.29 [facility] [address] [place] [id number], [place] [address]- 8258 Jan, [facility] [address] [place] [id number], [place] [address]- 3201 December, [facility] [address] 4767 December, [facility] [address]- 9762 December, [facility] [address] [place] [id number]- 8190 December, [facility] [address] [facility] [id number] [place] [address]- 3083 December, [facility] [address] [facility] [id number], [place] [address]- 0695 December, Routine health maintenance Z00.00 ; Morbid [...] HISTORY Never Assessed REASON FOR VISIT PALS PLAN OF CARE VITAL SIGNS MEDICATIONS Medication Instructions Dosage Frequency Start Date End Date Duration Status Esvinkaterineross KathieoStar 300 UNIT/ML Subcutaneous at bedtime-with pen needles 60 units 90 days Active RESULTS No Results PROCEDURES No Known procedures [...]
--- OUTSIDE RECORDS SUMMARY | 2018-12-21 12:33 | XMS REPORT ---
Author Author JAMESON COSME [facility] Address [address] [place] [address] Care Team Providers Care Fuel Manager Name Role Phone BARBACOSME Rhodes Unavailable PROBLEMS Type Condition ICD9-CM Code TYP10-AV Code Onset Dates Condition Status SNOMED Code Problem Dental caries K02.9 Active 91209925 Problem Tobacco abuse counseling Z71.6 Active 850007388 Problem Tobacco abuse Z72.0 Active 03120436 Problem Low HDL (under 40) E78.6 Active 666080995 Problem Primary osteoarthritis of right knee M17.11 Active 920649666 Problem Type 2 diabetes mellitus with hyperglycemia E11.65 Active 60607163 Problem Morbid (severe) obesity due to excess calories E66.01 Active 916529172 Problem Essential hypertension I10 Active 77977815 Problem Primary insomnia F51.01 Active 0821211 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 Active 762697370 Problem Body mass index (BMI) of 45.0-49.9 in adult Z68.42 Active 803376234 ALLERGIES No Information ENCOUNTERS Encounter Location Date Diagnosis [facility] [address] [place] [address] 85306- 4082 Mar, Type 2 diabetes mellitus with hyperglycemia E11.65 ; care home current use of insulin Z79.4 ; Body mass index (BMI) of 45.0-49.9 in adult Z68.42 ; Morbid (severe) obesity due to excess calories E66.01 ; Low HDL (under 40) E78.6 ; Right flank pain R10.9 and Essential hypertension I10 [facility] [address] [id number] [place] [address] 11589- 0621 December, Type 2 diabetes mellitus without complications E11.9 [facility] [address] [place] [id number] [address]- 0108 December, [place] [address] [address]- 1057 Nov, Type 2 diabetes mellitus without complications E11.9 [place] [address] [place] [id number] [place] [address] 52614- 8104 Nov, Type 2 diabetes mellitus without complications E11.9 ; BMI 45.0-49.9, adult Z68.42 ; Essential hypertension I10 ; Tobacco abuse Z72.0 and Tobacco abuse counseling Z71.6 [place] [address] [place] [address] [place] [address] 92476- 5489 Nov, Type 2 diabetes mellitus without complications E11.9 [place] [address] [place] [id number] [place] [address] 37671- 3617 Sep, [place] [address] [place] [id number] [place] [address] 95153- 8044 Aug, Type 2 diabetes mellitus without complications E11.9 ; BMI 50.0-59.9, adult Z68.43 ; Essential hypertension I10 ; Primary osteoarthritis of right knee M17.11 and Primary insomnia F51.01 [place] [address] [place] [id number] [place] [address] 58614- 2649 Aug, Type 2 diabetes mellitus without complications E11.9 [place] [address] [address]- 9417 Jul, [facility] [address] [place] [address] [id number] May, Dental examination Z01.20 [place] [address] [address]- 1448 May, Type 2 diabetes mellitus without complications E11.9 ; Essential hypertension I10 ; Dental caries K02.9 and Morbid obesity with BMI of 45.0-49.9, adult Z68.42 [place] [address] [place] [address] 86914- 7942 Apr, [place] [address] [place] [id number] [place] [address] 18325- 3032 Apr, [facility] [address] [address]- 2901 Mar, Type 2 diabetes mellitus without complications E11.9 [facility] [address] [address]- 9044 Jan, Type 2 diabetes mellitus without complications E11.9 ; Tobacco abuse counseling Z71.6 ; Tobacco abuse Z72.0 ; Morbid obesity with BMI of 45.0-49.9, adult Z68.42 and Essential hypertension I10 [facility] [address] [address]- 8199 Jan, [facility] [address] [place] [id number] [place] [address] 99706- 9978 December, [place] [address] [place] [id number] [place] [address] 45014- 0043 Oct, [facility] [address] [place] [id number] [place] [address] 85544- 3806 Oct, Type 2 diabetes mellitus without complications E11.9 ; Essential hypertension I10 ; Morbid obesity with BMI of 45.0-49.9, adult Z68.42 and Abscess L02.91 [facility] [address] [address]- 3283 Sep, Type 2 diabetes mellitus without complications E11.9 [facility] [address] [address]- 6030 Sep, Type 2 diabetes mellitus without complications E11.9 [facility] [address] [address]- 5132 Aug, [facility] [address] [place] [id number] [place] [address] 61693- 5355 Aug, [facility] [address] [address]- 3341 Aug, [facility] [address] [place] [id number] [place] [address] 48989- 3001 Jul, [facility] [address] [address]- 2147 Jun, Type 2 diabetes mellitus without complications E11.9 ; Morbid obesity with BMI of 45.0-49.9, adult Z68.42 ; Primary insomnia F51.01 and Abscess L02.91 [facility] [address] [id number] [address]- 8630 May, [facility] [address] [address] [id number] [place] [address] 58885- 1739 Apr, [facility] [address] [place] [id number] [place] [address] 29334- 0002 Apr, [facility] [address] [address] [id number] [place] [address] 82476- 7021 Feb, [facility] [address] [place] [id number] [place] [address] 51440- 2814 Jan, [facility] [address] [address]- 8647 Jan, [facility] [address] [place] [id number] [place] [address] 75729- 7136 Jan, [facility] [address] [address]- 9663 Jan, Pain in right knee M25.561 and Other chronic pain G89.29 [facility] [address] [address]- 9080 Jan, Morbid obesity with BMI of 45.0-49.9, adult Z68.42 ; Type 2 diabetes mellitus without complications E11.9 ; Pain in right knee M25.561 and Other chronic pain G89.29 [facility] [address] [address]- 6862 Jan, [facility] [address] [address]- 6216 December, [facility] [address] [facility] [id number] [address]- 2161 December, [facility] [address] [facility] [id number] [address]- 5141 December, [facility] [address] [facility] [id number] [address]- 8201 December, [facility] [address] [facility] [id number] [address]- 9293 December, [facility] [address] [facility] [id number] [address]- 9829 December, Routine health maintenance Z00.00 ; Morbid [...] SOCIAL HISTORY Never Assessed REASON FOR VISIT PLAN OF CARE VITAL SIGNS MEDICATIONS Medication Instructions Dosage Frequency Start Date End Date Duration Status Toosman SoloStar 300 UNIT/ML Subcutaneous at bedtime-with pen [...]
--- OUTSIDE RECORDS SUMMARY | 2018-12-21 12:34 | XMS REPORT ---
Author Author COSME BARBA Organization [employer] Address Unknown Phone Unavailable Care Team Providers Care Level Vial Curvature Gauger Name Role Phone COSME BARBA CP Unavailable Allergies, Adverse Reactions, Alerts Substance Reaction Event Type N.K.D.A. Info Not Available Non Drug Allergy Problems Problem Type Condition Code Onset Dates Condition Status Problem Family history of hypertension Z82.49 Active Problem Dental caries K02.9 Active Problem Family history of diabetes mellitus Z83.3 Active Problem Pain in right knee M25.561 Active Problem Other chronic pain G89.29 Active Problem Primary insomnia F51.01 Active Problem Type 2 diabetes mellitus without complications E11.9 Active Problem Anxiety F41.9 Active Problem Routine health maintenance Z00.00 Active Problem Morbid obesity with BMI of 45.0-49.9, adult Z68.42 Active Assessment Abscess L02.91 Active Assessment Primary insomnia F51.01 Active Problem Primary osteoarthritis of right knee M17.11 Active Problem Tobacco abuse Z72.0 Active Assessment Morbid obesity with BMI of 45.0-49.9, adult Z68.42 Active Problem Tobacco abuse counseling Z71.6 Active Assessment Type 2 diabetes mellitus without complications E11.9 Active Problem Family history of cancer Z80.9 Active Medications Medication Code System Code Instructions Start Date End Date Status Dosage Cozaar [facility] [address]-82 25 MG Orally Once a day January 21, 2016 1/2 tablet Toudereko KathieoStar [facility] [address]-32 300 UNIT/ML Subcutaneous at bedtime 50 units Lunesta [facility] [address]-65 2 MG Orally Once a day Jun 27, 2016 1 tablet immediately before bedtime GlipiZIDE [facility] [address]-09 5 mg Orally twice a day 1 tablet Clindamycin HCl [facility] [address]-06 300 MG Orally every 8 hrs Jun 27, 2016 Jul 04, 2016 1 capsule Metformin HCl [facility] [address]-90 1000 MG Orally Twice a day 1 tablet with meals Procedures Procedure Coding System Code Date MICROALBUMIN, SEMIQUANT CPT-4 80777 Jun 27, 2016 ASSAY OF URINE CREATININE CPT-4 03078 Jun 27, 2016 GLYCATED HEMOGLOBIN TEST CPT-4 94602 Jun 27, 2016 Office Visit, Est Pt., Level 3 CPT-4 33899 Jun 27, 2016 MICROALBUMIN, QUANTITATIVE CPT-4 08779 Jun 27, 2016 Vital Signs Date/Time: Jun 27, 2016 Cardiac Monitoring Heart Rate 76 bpm Weight 352.4 lbs Height 70 in BMI 50.56 Index Blood Pressure Diastolic 85 mmHg Blood Pressure Systolic 137 mmHg Results Name Result Date Reference Range Unit Abnormality Flag MICROALBUMIN/CREATININE RATIO, URINE ----Microalb/Creat Ratio 290.9 [id number] 0.0-30.0 mg/g creat H ----Creatinine, Urine 223.3 [id number] Not Estab. mg/dL ----Microalbumin, Urine 649.6 [id number] Not Estab. ug/mL A1C (IN HOUSE) ----A1C IN HOUSE 9.6 [id number] 4.3 - 5.6 % ----Previous A1c 7.5 [id number] ----Lot [id number] ----Exp date [id number] MICROALBUMIN, URINE (IN HOUSE) ----CRE 300mg/dL [id number] ----ALB 150mg/L [id number] ----Control + [id number] ----A:C (IN HOUSE) 30-300mg/g [id number] ----Clarity Clear [id number] ----Color Yellow [id number] ----Lot # [id number] ----Exp date [id number] ----MICROALBUMIN Abnormal [id number] Summary Purpose [employer] Submission
--- OUTSIDE RECORDS SUMMARY | 2018-12-21 12:34 | XMS REPORT ---
Author Author JAMESONCOSME Organization [facility] Address [address] [place] [address] Care Team Providers Care Marine Pipefitter Helper Name Role Phone COSME BARBA Unavailable PROBLEMS Type Condition ICD9-CM Code [id number] Code Onset Dates Condition Status SNOMED Code Problem Primary osteoarthritis of right knee M17.11 Active 407285534 Problem Dental caries K02.9 Active 50794505 Problem Type 2 diabetes mellitus without complications E11.9 Active 89632882 Problem Low HDL (under 40) E78.6 Active 303153834 Problem Morbid (severe) obesity due to excess calories E66.01 Active 967033819 Problem Body mass index (BMI) of 50-59.9 in adult Z68.43 Active 668105241 Problem Tobacco abuse counseling Z71.6 Active 175312386 Problem Tobacco abuse Z72.0 Active 04080927 Problem Essential hypertension I10 Active 19015608 Problem Primary insomnia F51.01 Active 8157916 ALLERGIES No Information ENCOUNTERS Encounter Location Date Diagnosis [place] [address] [place] [address]32- 3467 Mar, [place] [address] [place] [id number] [place] [address] 34949- 4778 December, Type 2 diabetes mellitus without complications E11.9 [facility] [id number] [place] [address] 91800- 0410 December, [place] [address] [address]- [address]43 Nov, Type 2 diabetes mellitus without complications E11.9 [place] [address] [place] [id number] [place] [address] 57642- 5489 Nov, Type 2 diabetes mellitus without complications E11.9 ; BMI 45.0-49.9, adult Z68.42 ; Essential hypertension I10 ; Tobacco abuse Z72.0 and Tobacco abuse counseling Z71.6 [place] [address] [place] [id number] [place] [address] 57781- 7162 Nov, Type 2 diabetes mellitus without complications E11.9 [place] [address] [address] [id number] [place] [address] 55737- 9228 Sep, [place] [address] 15562- 6611 Aug, Type 2 diabetes mellitus without complications E11.9 ; BMI 50.0-59.9, adult Z68.43 ; Essential hypertension I10 ; Primary osteoarthritis of right knee M17.11 and Primary insomnia F51.01 [place] [address] [place] [id number] [place] [address] 56248- 1187 Aug, Type 2 diabetes mellitus without complications E11.9 [place] [address] [address] [id number] [place] [address] 25816- 0509 Jul, [facility] [id number] [place] [address] [id number] May, Dental examination Z01.20 [place] [address] [id number] [place] [address] 14472- 3396 May, Type 2 diabetes mellitus without complications E11.9 ; Essential hypertension I10 ; Dental caries K02.9 and Morbid obesity with BMI of 45.0-49.9, adult Z68.42 [place] [address] [place] [id number] [place] [address] 70699- 5725 Apr, [place] [address] [address] [address] [place] [address] 59242- 6200 Apr, [place] [address] [place] [address] [address] [place] [address] 60475- 1580 Mar, Type 2 diabetes mellitus without complications E11.9 [place] [address] [address] [id number] [place] [address] 68851- 0876 Jan, Type 2 diabetes mellitus without complications E11.9 ; Tobacco abuse counseling Z71.6 ; Tobacco abuse Z72.0 ; Morbid obesity with BMI of 45.0-49.9, adult Z68.42 and Essential hypertension I10 [place] [address] [address] [id number] [place] [address] [phone]- 5189 Jan, [facility] [address] [id number] [place] [address] 91343- 9287 December, [place] [address] [id number] [place] [address] 13275- 4852 Oct, [place] [address] [address] [id number] [place] [address] 50971- 7161 Oct, Type 2 diabetes mellitus without complications E11.9 ; Essential hypertension I10 ; Morbid obesity with BMI of 45.0-49.9, adult Z68.42 and Abscess L02.91 [place] [address] [address] [id number] [place] [address] 16710- 3695 Sep, Type 2 diabetes mellitus without complications E11.9 [place] [address] [address] [id number] [place] [address] 63621- 0657 Sep, Type 2 diabetes mellitus without complications E11.9 [place] [address] [address] [id number] [place] [address] 10230- 2679 Aug, [place] [address] [place] [address] [address] 8933 Aug, [place] [address] [address] 7859 Aug, [place] [address] [address]- 4478 Jul, [place] [address] [place] [id number] [place] [address] 23101- 9306 Jun, Type 2 diabetes mellitus without complications E11.9 ; Morbid obesity with BMI of 45.0-49.9, adult Z68.42 ; Primary insomnia F51.01 and Abscess L02.91 [place] [address] [place] [address] May, [facility] [address] 9312 Apr, [facility] [address] [facility] [id number] [address]17 Apr, [facility] [address] [address] 23[address] Feb, [facility] [address] [place] [id number] [address] 3932 Jan, [facility] [address] [address] Jan, [facility] [address] [address]- 7980 Jan, [facility] [address] [address]- 8217 Jan, Pain in right knee M25.561 and Other chronic pain G89.29 [facility] [address] [place] [id number] [address]- 3934 Jan, Morbid obesity with BMI of 45.0-49.9, adult Z68.42 ; Type 2 diabetes mellitus without complications E11.9 ; Pain in right knee M25.561 and Other chronic pain G89.29 [facility] [address] [place] [id number] [address]- 0912 Jan, [facility] [address] [id number] [address]- 5089 December, [facility] [address] 5753 December, [facility] [address] 3958 December, [facility] [address] [place] [id number] [address]598 December, [facility] [address] [facility] [id number] [address] 7509 December, [facility] [address] [facility] [id number] [address]- 7392 December, Routine health maintenance Z00.00 ; Morbid [...] SOCIAL HISTORY Never Assessed REASON FOR VISIT Repository Medication PLAN OF CARE VITAL SIGNS MEDICATIONS Medication Instructions Dosage Frequency Start Date End Date Duration Status Sitagliptin Phosphate 100 mg Orally Once a day 1 tablet 24h May, 90 days Active RESULTS No Results PROCEDURES [...]
--- OUTSIDE RECORDS SUMMARY | 2018-12-21 12:34 | XMS REPORT ---
Author Author CALOS ONEILL [facility] Address [address] [place] [address] Care Team Providers Care Council Member Name Role Phone CALOS ONEILL Unavailable PROBLEMS Type Condition ICD9-CM Code [id number] Code Onset Dates Condition Status SNOMED Code Problem Dental caries K02.9 Active 53942733 Problem Tobacco abuse counseling Z71.6 Active 908373901 Problem Tobacco abuse Z72.0 Active 78144451 Problem Low HDL (under 40) E78.6 Active 541251591 Problem Primary osteoarthritis of right knee M17.11 Active 489007140 Problem Type 2 diabetes mellitus with hyperglycemia E11.65 Active 14335210 Problem Morbid (severe) obesity due to excess calories E66.01 Active 788652267 Problem Essential hypertension I10 Active 65999340 Problem Primary insomnia F51.01 Active 3652958 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.4 Active 356373118 Problem Body mass index (BMI) of 45.0-49.9 in adult Z68.42 Active 336729739 ALLERGIES No Known Allergies ENCOUNTERS Encounter Location Date Diagnosis [place] [address] [place] [id number] [place] [address] 82266- 7591 Jul, [facility] [address] [address] [id number] [place] [address] 06349- 8057 30 Jun, 2018 Type 2 diabetes mellitus with hyperglycemia E11.65 ; Essential hypertension I10 ; Morbid (severe) obesity due to excess calories E66.01 ; Low HDL (under 40) E78.6 and BMI 45.0-49.9, adult Z68.42 [facility] [address] [address] [id number] [place] [address] 17349- 1779 May, Type 2 diabetes mellitus with hyperglycemia E11.65 [facility] [address] [address] [id number] [place] [address] 66080- 8834 Apr, [place] [address] [place] [address] 14467- 7348 13 Mar, 2018 Type 2 diabetes mellitus with hyperglycemia E11.65 ; intermediate card tender current use of insulin Z79.4 ; Body mass index (BMI) of 45.0-49.9 in adult Z68.42 ; Morbid (severe) obesity due to excess calories E66.01 ; Low HDL (under 40) E78.6 ; Right flank pain R10.9 and Essential hypertension I10 [place] [address] [place] [id number] [place] [address] 08038- 9120 December, Type 2 diabetes mellitus without complications E11.9 [place] [address] [place] [id number] [place] [address] 79678- 3263 December, [place] [address] [place] [id number] [place] [address] 40643- 8563 Nov, Type 2 diabetes mellitus without complications E11.9 [place] [address] [place] [id number] [place] [address] 86487- 6150 Nov, Type 2 diabetes mellitus without complications E11.9 ; BMI 45.0-49.9, adult Z68.42 ; Essential hypertension I10 ; Tobacco abuse Z72.0 and Tobacco abuse counseling Z71.6 [place] [address] [place] [id number] [place] [address] 77462- 4669 Nov, Type 2 diabetes mellitus without complications E11.9 [place] [address] [place] [id number] [place] [address] 68706- 6272 Sep, [place] [address] [place] [id number] [place] [address] 21799- 8882 Aug, Type 2 diabetes mellitus without complications E11.9 ; BMI 50.0-59.9, adult Z68.43 ; Essential hypertension I10 ; Primary osteoarthritis of right knee M17.11 and Primary insomnia F51.01 [place] [address] [place] [id number] [place] [address] 06093- 2103 Aug, Type 2 diabetes mellitus without complications E11.9 [facility] [address], [place] [address]- 9014 Jul, [facility] [address] [id number] May, Dental examination Z01.20 [facility] [address], [place] [address]- 2299 May, Type 2 diabetes mellitus without complications E11.9 ; Essential hypertension I10 ; Dental caries K02.9 and Morbid obesity with BMI of 45.0-49.9, adult Z68.42 [facility] [address], [place] [address]- 5972 Apr, [facility] [address], [place] [address]- 7583 Apr, [facility] [address], [place] [address]- 6837 Mar, Type 2 diabetes mellitus without complications E11.9 [facility] [address], [place] [address]- 0634 Jan, Type 2 diabetes mellitus without complications E11.9 ; Tobacco abuse counseling Z71.6 ; Tobacco abuse Z72.0 ; Morbid obesity with BMI of 45.0-49.9, adult Z68.42 and Essential hypertension I10 [facility] [address], [place] [address]- 5001 Jan, [facility] [address], [place] [address]- 3039 December, [facility] [address], [place] [address]- 1682 Oct, [facility] [address], [place] [address]- 5588 Oct, Type 2 diabetes mellitus without complications E11.9 ; Essential hypertension I10 ; Morbid obesity with BMI of 45.0-49.9, adult Z68.42 and Abscess L02.91 [facility] [address], [place] [address]- 4731 17 Sep, 2016 Type 2 diabetes mellitus without complications E11.9 [facility] [address] [address]- 3095 Sep, Type 2 diabetes mellitus without complications E11.9 [facility] [address] [place] [address]- 8443 Aug, [facility] [address] [place] [address] 09631- 8860 Aug, [facility] [address] [address]- 0068 Aug, [facility] [address], [place] [address]- 6489 Jul, [facility] [address], [place] [address]- 0764 Jun, Type 2 diabetes mellitus without complications E11.9 ; Morbid obesity with BMI of 45.0-49.9, adult Z68.42 ; Primary insomnia F51.01 and Abscess L02.91 [facility] [address], [place] [address]- 4192 May, [facility] [address], [place] [address]- 1250 Apr, [facility] [address], [place] [address]- 3003 Apr, [facility] [address], [place] [address]- 4222 Feb, [facility] [address], [place] [address]- 0147 Jan, [facility] [address], [place] [address]- 0480 Jan, [facility] [address], [place] [address]- 2101 Jan, [facility] [address], [place] [address]- 0184 14 Jan, 2016 Pain in right knee M25.561 and Other chronic pain G89.29 [facility] [address], [place] [address]- 8679 03 Jan, 2016 Morbid obesity with BMI of 45.0-49.9, adult Z68.42 ; Type 2 diabetes mellitus without complications E11.9 ; Pain in right knee M25.561 and Other chronic pain G89.29 [facility] [address], [place] [address]- 8319 Jan, [facility] [address] [address] [id number] [place] [address] 01243- 6864 December, [facility] [address] [address] [id number] [place] [address] 19060- 8259 December, [facility] [id number] [place] [address] 12584- 2356 December, [facility] [address] [place] [address] 61213- 3468 December, [facility] [address] [place] [address] 74003- 6989 December, [facility] [address], [place] [address]- 9074 December, Routine health maintenance Z00.00 ; Morbid [...] SOCIAL HISTORY Never Assessed REASON FOR VISIT Establish Care - Minh LEVY , needs medications refilled Minh LEVY , quit smoking Minh Levy , A1C done in visit - Minh LEVY , needs labs done also - Minh LEVY , consult on weight loss medication- Minh LEVY PLAN OF CARE Activity Details Follow Up 3 Months Reason: VITAL SIGNS Height 70 in 2018-07-19 Weight 338.4 lbs 2018-07-19 Temperature 96.9 degrees Fahrenheit 2018-07-19 Heart Rate 84 bpm 2018-07-19 Respiratory Rate 20 2018-07-19 BMI 48.55 kg/m2 2018-07-19 Blood pressure systolic 132 mmHg 2018-07-19 Blood pressure diastolic 80 mmHg 2018-07-19 MEDICATIONS Medication Instructions Dosage Frequency Start Date End Date Duration Status Glucocard Expression Test - In Vitro 2 times a day as directed 12h May, Active Multi Vitamin Orally Once a day 1 tablet 24h Active Toujeo SoloStar 300 UNIT/ML Subcutaneous at bedtime-with pen needles 60 units Active Cozaar 25 MG Orally Once a day 1/2 tablet 24h 60 Active Glucocard Expression Test 1 subcutaneously 2 times a day test 2 times per day 12h 12 May, 2017 Active Contrave 8-90 MG 1 tab daily x1 week, then 1 tab twice daily x 1 wk, then 2 tab in am and 1 tab in pm x 1 wk, then 2 tabs twice daily Jun, Active Sitagliptin Phosphate 100 mg Orally Once a day 1 tablet 24h 90 Active Zinc 50 MG Orally 2 times a day 1 tablet 12h Active GlipiZIDE 10 mg Orally 2 times a day 1 tablet 12h Jan, 30 days Active Metformin HCl 1000 MG TAKE ONE TABLET BY MOUTH TWICE DAILY WITH MEALS Active RESULTS No Results PROCEDURES Procedure Date Ordered Result Body Site LIPID PANEL Jul 19, 2018 COMPREHEN METABOLIC PANEL Jul 19, 2018 ASSAY THYROID STIM HORMONE Jul 19, 2018 COMPLETE CBC W/AUTO DIFF WBC Jul 19, 2018 GLYCATED HEMOGLOBIN TEST Jul 19, 2018 VENIPUNCT, ROUTINE* Jul 19, 2018 INSTRUCTIONS MEDICATIONS ADMINISTERED No Known Medications MEDICAL (GENERAL) HISTORY Type Description Date Medical History diabetes mellitus Medical History depression Medical History hypertension Medical History Anxiety Surgical History skin infection removal- fungal type-was on microfungin and wound vac to the right abdomen- one also on the left abdomen Hospitalization History Surgery only
--- OUTSIDE RECORDS SUMMARY | 2018-12-21 12:34 | XMS REPORT ---
Author Author RAHEL LUNA [facility] Address [address] [place] [address] Care Team Providers Care Field Supervisor Name Role Phone RAHEL LUNA Unavailable PROBLEMS Type Condition ICD9-CM Code DVG12-CP Code Onset Dates Condition Status SNOMED Code Problem Dental caries K02.9 Active 66071257 Problem Tobacco abuse counseling Z71.6 Active 476620348 Problem Tobacco abuse Z72.0 Active 12549763 Problem Low HDL (under 40) E78.6 Active 324502992 Problem Primary osteoarthritis of right knee M17.11 Active 398032066 Problem Type 2 diabetes mellitus with hyperglycemia E11.65 Active 38383469 Problem Morbid (severe) obesity due to excess calories E66.01 Active 690636692 Problem Essential hypertension I10 Active 11496901 Problem Primary insomnia F51.01 Active 1489604 Problem 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 Active 297851606 Problem Body mass index (BMI) of 45.0-49.9 in adult Z68.42 Active 906243229 ALLERGIES No Information ENCOUNTERS Encounter Location Date Diagnosis [place] [id number] [place] [address] May, Type 2 diabetes mellitus with hyperglycemia E11.65 [facility] [address] [place] [address] Apr, [place] [address] [place] [id number] [place] [address] 5810 Mar, Type 2 diabetes mellitus with hyperglycemia E11.65 ; 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 ; Body mass index (BMI) of 45.0-49.9 in adult Z68.42 ; Morbid (severe) obesity due to excess calories E66.01 ; Low HDL (under 40) E78.6 ; Right flank pain R10.9 and Essential hypertension I10 [place] [address], [place] [address] December, Type 2 diabetes mellitus without complications E11.9 [place] [id number] [address] December, [facility] [address], [place] [address] Nov, Type 2 diabetes mellitus without complications E11.9 [place] [address] [place] [address]- 9764 Nov, Type 2 diabetes mellitus without complications E11.9 ; BMI 45.0-49.9, adult Z68.42 ; Essential hypertension I10 ; Tobacco abuse Z72.0 and Tobacco abuse counseling Z71.6 [place] [id number] [address] 9[address] Nov, Type 2 diabetes mellitus without complications E11.9 [place] [address], [place] [address] Sep, [place] [address] [place] [address]76- 5104 Aug, Type 2 diabetes mellitus without complications E11.9 ; BMI 50.0-59.9, adult Z68.43 ; Essential hypertension I10 ; Primary osteoarthritis of right knee M17.11 and Primary insomnia F51.01 [place] [address], [place] [address] Aug, Type 2 diabetes mellitus without complications E11.9 [place] [address], [place] [address] Jul, [facility] [address] [address] May, Dental examination Z01.20 [facility] [address], [place] [address] May, Type 2 diabetes mellitus without complications E11.9 ; Essential hypertension I10 ; Dental caries K02.9 and Morbid obesity with BMI of 45.0-49.9, adult Z68.42 [facility] [address], [place] [address] Apr, [facility] [address], [place] [address] 46[address] Apr, [facility] [address] [id number] [address] 8[address] Mar, Type 2 diabetes mellitus without complications E11.9 [facility] [address], [place] [address] Jan, Type 2 diabetes mellitus without complications E11.9 ; Tobacco abuse counseling Z71.6 ; Tobacco abuse Z72.0 ; Morbid obesity with BMI of 45.0-49.9, adult Z68.42 and Essential hypertension I10 [place] [address], [place] [address] Jan, [facility] [address], [place] [address] December, [facility] [address], [place] [address] Oct, [facility] [address], [place] [address] 25[address] Oct, Type 2 diabetes mellitus without complications E11.9 ; Essential hypertension I10 ; Morbid obesity with BMI of 45.0-49.9, adult Z68.42 and Abscess L02.91 [facility] [address], [place] [address] 22[address] Sep, Type 2 diabetes mellitus without complications E11.9 [facility] [address], [place] [address] 66[address] Sep, Type 2 diabetes mellitus without complications E11.9 [facility] [address], [place] [address] Aug, [facility] [address], [place] [address]- 74[address] Aug, [facility] [address], [place] [address] 0[address] Aug, [facility] [address], [place] [address]- 69[address] Jul, [facility] [id number] [place] [address]- 9675 Jun, Type 2 diabetes mellitus without complications E11.9 ; Morbid obesity with BMI of 45.0-49.9, adult Z68.42 ; Primary insomnia F51.01 and Abscess L02.91 [facility] [address] [address] 7[address] May, [facility] [id number] [address]- 8467 Apr, [facility] [address], [place] [address]- 0258 Apr, [facility] [address], [place] [address]- 10[address] Feb, [facility] [address], [place] [address]- 44[address] Jan, [facility] [address], [place] [address]- 54[address] Jan, [facility] [address], [place] [address]- 76[address] Jan, [facility] [address] [place] [id number], [place] [address]- [address] 14 Jan, 2016 Pain in right knee M25.561 and Other chronic pain G89.29 [facility] [address] [id number], [place] [address] 03 Jan, 2016 Morbid obesity with BMI of 45.0-49.9, adult Z68.42 ; Type 2 diabetes mellitus without complications E11.9 ; Pain in right knee M25.561 and Other chronic pain G89.29 [facility] [address] [id number], [place] [address]- 4[address] Jan, [facility] [address], [place] [address]- 5558 December, [facility] [address], [place] [address]- 3416 December, [facility] [address], [place] [address]- 64[address] December, [facility] [address], [place] [address]- 0424 December, [facility] [address] [address] December, [facility] [address] [id number], [place] [address]- 5[address] December, Routine health maintenance Z00.00 ; Morbid [...] SOCIAL HISTORY Never Assessed REASON FOR VISIT Refill request PLAN OF CARE VITAL SIGNS MEDICATIONS Medication Instructions Dosage Frequency Start Date End Date Duration Status GlipiZIDE 10 mg Orally 2 times a day 1 tablet 12h 20 Jan, 2017 30 days Active RESULTS No Results PROCEDURES No [...]
--- OUTSIDE RECORDS SUMMARY | 2018-12-21 12:34 | XMS REPORT ---
Author Author JAMESON COSME Organization [facility] Address [address] [place] [address] Care Team Providers Care Engineering Tech Name Role Phone BARBAMAKI RhodesELE Unavailable PROBLEMS Type Condition ICD9-CM Code ZTH71-FZ Code Onset Dates Condition Status SNOMED Code Problem Dental caries K02.9 Active 33639265 Problem Tobacco abuse Z72.0 Active 64782270 Problem Anxiety F41.9 Active 44348719 Problem Essential hypertension I10 Active 34340200 Problem Abscess L02.91 Active 168505748 Problem Pain in right knee M25.561 Active 07920970 Problem Tobacco abuse counseling Z71.6 Active 646710535 Problem Primary insomnia F51.01 Active 2587638 Problem Other chronic pain G89.29 Active 39987557 Problem Primary osteoarthritis of right knee M17.11 Active 166757928 Problem Type 2 diabetes mellitus without complications E11.9 Active 56421670 Problem Morbid obesity with BMI of 45.0-49.9, adult Z68.42 Active 884387073 Problem Low HDL (under 40) E78.6 Active 203334436 Problem Routine health maintenance Z00.00 Active 259246536 ALLERGIES No Information SOCIAL HISTORY Never Assessed PLAN OF CARE VITAL SIGNS MEDICATIONS Medication Instructions Dosage Frequency Start Date End Date Duration Status Metformin HCl 1000 MG Orally Twice a day 1 tablet with meals 12h 30 days Active RESULTS No Results PROCEDURES No Known procedures IMMUNIZATIONS No Known Immunizations MEDICAL (GENERAL) HISTORY Type Description Date Medical History diabetes mellitus Medical History depression Medical History hypertension Surgical History skin infection removal- fungal type-was on microfungin and wound vac to the right abdomen- one also on the left abdomen Hospitalization History Surgery only
--- OUTSIDE RECORDS SUMMARY | 2018-12-21 12:34 | XMS REPORT ---
Author Author JAMESON COSME Organization [facility] Address [address] [place] [address] Care Team Providers Care Supply Room Clerk Name Role Phone BARBAMAKI RhodesELE Unavailable PROBLEMS Type Condition ICD9-CM Code ACN42-XE Code Onset Dates Condition Status SNOMED Code Problem Dental caries K02.9 Active 02090943 Problem Tobacco abuse Z72.0 Active 76808103 Problem Anxiety F41.9 Active 27607444 Problem Essential hypertension I10 Active 14647927 Problem Abscess L02.91 Active 711404925 Problem Pain in right knee M25.561 Active 08109072 Problem Tobacco abuse counseling Z71.6 Active 323408810 Problem Primary insomnia F51.01 Active 0182938 Problem Other chronic pain G89.29 Active 78634355 Problem Primary osteoarthritis of right knee M17.11 Active 533434857 Problem Type 2 diabetes mellitus without complications E11.9 Active 47206050 Problem Morbid obesity with BMI of 45.0-49.9, adult Z68.42 Active 745912642 Problem Low HDL (under 40) E78.6 Active 477475964 Problem Routine health maintenance Z00.00 Active 934057810 ALLERGIES No Information SOCIAL HISTORY Never Assessed PLAN OF CARE VITAL SIGNS MEDICATIONS Unknown [...]
--- OUTSIDE RECORDS SUMMARY | 2018-12-21 12:34 | XMS REPORT ---
Author Author COSME BARBA Organization [facility] Address [address] [place] [address] Care Team Providers Care Rubber Worker Name Role Phone BARBA COSME Unavailable PROBLEMS Type Condition ICD9-CM Code LYL30-BX Code Onset Dates Condition Status SNOMED Code Problem Dental caries K02.9 Active 14340658 Problem Tobacco abuse Z72.0 Active 50192913 Problem Anxiety F41.9 Active 45843378 Problem Essential hypertension I10 Active 69566720 Problem Abscess L02.91 Active 070446991 Problem Pain in right knee M25.561 Active 74450102 Problem Tobacco abuse counseling Z71.6 Active 292642999 Problem Primary insomnia F51.01 Active 6853274 Problem Other chronic pain G89.29 Active 17802209 Problem Primary osteoarthritis of right knee M17.11 Active 940643118 Problem Type 2 diabetes mellitus without complications E11.9 Active 08037621 Problem Morbid obesity with BMI of 45.0-49.9, adult Z68.42 Active 489557900 Problem Low HDL (under 40) E78.6 Active 758624433 Problem Routine health maintenance Z00.00 Active 499151191 ALLERGIES Unknown Allergies SOCIAL HISTORY No smoking Hx information available PLAN OF CARE VITAL SIGNS MEDICATIONS Unknown Medications RESULTS No Results PROCEDURES No Known procedures IMMUNIZATIONS No Known Immunizations
--- OUTSIDE RECORDS SUMMARY | 2018-12-21 12:34 | XMS REPORT ---
Author Author CALOS ONEILL [facility] Address [address] [place] [address] Care Team Providers Care Teachers Aide Name Role Phone CALSO ONEILL Unavailable PROBLEMS Type Condition ICD9-CM Code PFA99-FM Code Onset Dates Condition Status SNOMED Code Problem Dental caries K02.9 Active 88323095 Problem Tobacco abuse counseling Z71.6 Active 185697328 Problem Tobacco abuse Z72.0 Active 10252434 Problem Low HDL (under 40) E78.6 Active 948342129 Problem Primary osteoarthritis of right knee M17.11 Active 591700737 Problem Type 2 diabetes mellitus with hyperglycemia E11.65 Active 00376259 Problem Morbid (severe) obesity due to excess calories E66.01 Active 029070005 Problem Essential hypertension I10 Active 09241123 Problem Primary insomnia F51.01 Active 5571426 Problem 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.4 Active 665029940 Problem Body mass index (BMI) of 45.0-49.9 in adult Z68.42 Active 941427735 ALLERGIES No Information ENCOUNTERS Encounter Location Date Diagnosis [place] [address] [place] [id number] [place] [address]207- [address] Jul, [facility] [address] [id number] [place] [address] 00453- 7422 Jun, Type 2 diabetes mellitus with hyperglycemia E11.65 ; Essential hypertension I10 ; Morbid (severe) obesity due to excess calories E66.01 ; Low HDL (under 40) E78.6 and BMI 45.0-49.9, adult Z68.42 [facility] [address] [id number] [place] [address]18- 0416 May, Type 2 diabetes mellitus with hyperglycemia E11.65 [facility] [id number] [place] [address] 76797- 6256 Apr, [place] [address] [place] [address]36- 4734 Mar, Type 2 diabetes mellitus with hyperglycemia E11.65 ; senior living current use of insulin Z79.4 ; Body mass index (BMI) of 45.0-49.9 in adult Z68.42 ; Morbid (severe) obesity due to excess calories E66.01 ; Low HDL (under 40) E78.6 ; Right flank pain R10.9 and Essential hypertension I10 [place] [address] [place] [address] [id number] [place] [address] 08253- 7373 December, Type 2 diabetes mellitus without complications E11.9 [place] [address] [place] [id number] [place] [address] 21493- 0676 December, [place] [address] [place] [id number] [place] [address] 03470- 6622 Nov, Type 2 diabetes mellitus without complications E11.9 [place] [address] [place] [id number] [place] [address] 28195- 0343 Nov, Type 2 diabetes mellitus without complications E11.9 ; BMI 45.0-49.9, adult Z68.42 ; Essential hypertension I10 ; Tobacco abuse Z72.0 and Tobacco abuse counseling Z71.6 [place] [address] [place] [id number] [place] [address] 05248- 1509 Nov, Type 2 diabetes mellitus without complications E11.9 [place] [address] [place] [id number] [place] [address] 52497- 4316 Sep, [place] [address] [place] [id number] [place] [address] 94691- 7582 Aug, Type 2 diabetes mellitus without complications E11.9 ; BMI 50.0-59.9, adult Z68.43 ; Essential hypertension I10 ; Primary osteoarthritis of right knee M17.11 and Primary insomnia F51.01 [place] [address] [place] [id number] [place] [address] 46965- 8192 Aug, Type 2 diabetes mellitus without complications E11.9 [facility] [address] [address]- [address] Jul, [facility] [address] [address] May, Dental examination Z01.20 [facility] [address] [address]- 6032 May, Type 2 diabetes mellitus without complications E11.9 ; Essential hypertension I10 ; Dental caries K02.9 and Morbid obesity with BMI of 45.0-49.9, adult Z68.42 [facility] [address] [address]- 6596 Apr, [facility] [address] [address]- 9534 Apr, [facility] [address] [address]- 4222 Mar, Type 2 diabetes mellitus without complications E11.9 [facility] [address] [address]- 2266 Jan, Type 2 diabetes mellitus without complications E11.9 ; Tobacco abuse counseling Z71.6 ; Tobacco abuse Z72.0 ; Morbid obesity with BMI of 45.0-49.9, adult Z68.42 and Essential hypertension I10 [facility] [address] [address]- 1149 Jan, [facility] [address] [address]- 0474 December, [facility] [address] [address]- 5882 Oct, [facility] [address] [address]- 7511 Oct, Type 2 diabetes mellitus without complications E11.9 ; Essential hypertension I10 ; Morbid obesity with BMI of 45.0-49.9, adult Z68.42 and Abscess L02.91 [facility] [address] [address]- 6[address] 17 Sep, 2016 Type 2 diabetes mellitus without complications E11.9 [facility] [address] [address]- 4443 Sep, Type 2 diabetes mellitus without complications E11.9 [facility] [address] [address]- 5776 Aug, [facility] [address] [id number] [place] [address] 30479- 6583 Aug, [facility] [address] [address]- 1686 Aug, [facility] [address] [place] [address] 87889- 5650 Jul, [facility] [address] [address]- 1274 Jun, Type 2 diabetes mellitus without complications E11.9 ; Morbid obesity with BMI of 45.0-49.9, adult Z68.42 ; Primary insomnia F51.01 and Abscess L02.91 [facility] [address] [address]- 9803 May, [facility] [address] [address]- 4265 Apr, [facility] [address] [address]- 5988 Apr, [facility] [address] [address]- 7278 Feb, [facility] [address] [address]- 0664 Jan, [facility] [address] [address]- 7531 Jan, [facility] [address] [address]- 9285 Jan, [facility] [address] [address]- 8847 14 Jan, 2016 Pain in right knee M25.561 and Other chronic pain G89.29 [facility] [address] [address]- 9188 03 Jan, 2016 Morbid obesity with BMI of 45.0-49.9, adult Z68.42 ; Type 2 diabetes mellitus without complications E11.9 ; Pain in right knee M25.561 and Other chronic pain G89.29 [facility] [address] [address]- 5732 Jan, [facility] [id number] [place] [address] 42250- 5591 December, [facility] [id number] [place] [address] 71538- 4326 December, [facility] [id number] [place] [address] 39688- 1491 December, [facility] [address] [place] [address] 98680- 0947 December, [facility] [address] [place] [address] 89888- 8208 December, [facility] [address] [address]- 1384 December, Routine health maintenance Z00.00 ; Morbid [...] SOCIAL HISTORY Never Assessed REASON FOR VISIT refill request PLAN OF CARE VITAL SIGNS MEDICATIONS Medication Instructions Dosage Frequency Start Date End Date Duration Status Cozaar 25 mg Orally Once a day 1/2 tablet 24h 60 Active RESULTS No Results PROCEDURES No Known [...]
--- OUTSIDE RECORDS SUMMARY | 2018-12-21 12:34 | XMS REPORT ---
Author Author JAMESON COSME Organization [facility] Address [address] [place] [address] Care Team Providers Care Materials And Processes Manager Name Role Phone BARBAMAKI RhodesELE Unavailable PROBLEMS Type Condition ICD9-CM Code QPY99-NH Code Onset Dates Condition Status SNOMED Code Problem Dental caries K02.9 Active 68081111 Problem Tobacco abuse Z72.0 Active 08365477 Problem Anxiety F41.9 Active 55635170 Problem Essential hypertension I10 Active 92558023 Problem Abscess L02.91 Active 297134180 Problem Pain in right knee M25.561 Active 06966514 Problem Tobacco abuse counseling Z71.6 Active 337691510 Problem Primary insomnia F51.01 Active 2883302 Problem Other chronic pain G89.29 Active 42129160 Problem Primary osteoarthritis of right knee M17.11 Active 801931869 Problem Type 2 diabetes mellitus without complications E11.9 Active 87781753 Problem Morbid obesity with BMI of 45.0-49.9, adult Z68.42 Active 903056573 Problem Low HDL (under 40) E78.6 Active 329522515 Problem Routine health maintenance Z00.00 Active 090464934 ALLERGIES No Information SOCIAL HISTORY Never Assessed PLAN OF CARE VITAL SIGNS MEDICATIONS Medication Instructions Dosage Frequency Start Date End Date Duration Status GlipiZIDE 5 mg Orally twice a day 1 tablet 12h 30 days Active RESULTS No Results [...]
--- OUTSIDE RECORDS SUMMARY | 2018-12-21 12:35 | XMS REPORT ---
Author Author COSME BARBA Organization [facility] Address [address] [place] [address] Care Team Providers Care Laboratory Administrative Director Name Role Phone BARBAMAKI RhodesELE Unavailable PROBLEMS Type Condition ICD9-CM Code AQN79-KP Code Onset Dates Condition Status SNOMED Code Problem Dental caries K02.9 Active 38702049 Problem Tobacco abuse Z72.0 Active 00104512 Problem Anxiety F41.9 Active 86207788 Problem Essential hypertension I10 Active 97083046 Problem Abscess L02.91 Active 487937856 Problem Pain in right knee M25.561 Active 00451221 Problem Tobacco abuse counseling Z71.6 Active 187412180 Problem Primary insomnia F51.01 Active 9658653 Problem Other chronic pain G89.29 Active 30594236 Problem Primary osteoarthritis of right knee M17.11 Active 349987930 Problem Type 2 diabetes mellitus without complications E11.9 Active 04959084 Problem Morbid obesity with BMI of 45.0-49.9, adult Z68.42 Active 206275286 Problem Low HDL (under 40) E78.6 Active 754535252 Problem Routine health maintenance Z00.00 Active 698705515 ALLERGIES No Known Allergies SOCIAL HISTORY Never Assessed PLAN OF CARE Activity Details Follow Up 3 Months Reason:CHM/DM VITAL SIGNS Height 70 in 2016-10-19 Weight 345.0 lbs 2016-10-19 Temperature 97.4 degrees Fahrenheit 2016-10-19 Heart Rate 74 bpm 2016-10-19 Respiratory Rate 20 2016-10-19 BMI 49.50 kg/m2 2016-10-19 Blood pressure systolic 122 mmHg 2016-10-19 Blood pressure diastolic 76 mmHg 2016-10-19 MEDICATIONS Medication Instructions Dosage Frequency Start Date End Date Duration Status Cozaar 25 MG Orally Once a day 1/2 tablet 24h Jan, 90 days Active Metformin HCl 1000 MG Orally Twice a day 1 tablet with meals 12h 90 days Active Bactrim DS 800-160 MG Orally Twice a day 1 tablet 12h Oct,Oct 10 day(s) Active GlipiZIDE 5 mg Orally twice a day 1 tablet 12h 90 days Active [place] V[facility]quezHar[facility]ar 300 UNIT/ML Subcutaneous at bedtime 50 units 12 months Active RESULTS Name Result Date Reference Range A1C (IN HOUSE) 2016-10-19 A1C IN HOUSE 8.1 4.3 - 5.6 % Previous A1c 9.6 Lot [id number] Exp date 06/2018 PROCEDURES Procedure Date Ordered Result Body Site GLYCATED HEMOGLOBIN TEST October 19, 2016 IMMUNIZATIONS No Known Immunizations MEDICAL (GENERAL) HISTORY Type Description Date Medical History diabetes mellitus Medical History depression Medical History hypertension Surgical History skin infection removal- fungal type-was on microfungin and wound vac to the right abdomen- one also on the left abdomen Hospitalization History Surgery only
--- OUTSIDE RECORDS SUMMARY | 2018-12-21 12:35 | XMS REPORT ---
Author Author COSME BARBA Organization [facility] Address [address] [place] [address] Care Team Providers Care Family Resource Management Professor Name Role Phone COSME BARBA Unavailable PROBLEMS Type Condition ICD9-CM Code SNG99-XU Code Onset Dates Condition Status SNOMED Code Problem Family history of hypertension Z82.49 Active 195035250 Problem Dental caries K02.9 Active 14314110 Problem Family history of diabetes mellitus Z83.3 Active 404794813 Problem Primary osteoarthritis of right knee M17.11 Active 870609662 Problem Tobacco abuse Z72.0 Active 76994800 Problem Tobacco abuse counseling Z71.6 Active 851357953 Problem Family history of cancer Z80.9 Active 865621223 Problem Pain in right knee M25.561 Active 63457843 Problem Other chronic pain G89.29 Active 21594324 Problem Type 2 diabetes mellitus without complications E11.9 Active 73363374 Problem Anxiety F41.9 Active 81743147 Problem Routine health maintenance Z00.00 Active 772713247 Problem Morbid obesity with BMI of 45.0-49.9, adult Z68.42 Active 386687655 ALLERGIES Unknown Allergies SOCIAL HISTORY No smoking Hx information available PLAN OF CARE VITAL SIGNS MEDICATIONS Medication Instructions Dosage Frequency Start Date End Date Duration Status GlipiZIDE 5 mg Orally twice a day APPT NEEDED FOR REFILL 1 tablet Active RESULTS No Results PROCEDURES No Known procedures IMMUNIZATIONS No Known Immunizations
--- OUTSIDE RECORDS SUMMARY | 2018-12-21 12:35 | XMS REPORT ---
Author Author JAMESON COSME Organization [facility] Address [address] [place] [address] Care Team Providers Care Keno Writer/Runner Name Role Phone BARBAMAKI RhodesELE Unavailable PROBLEMS Type Condition ICD9-CM Code XZG92-CN Code Onset Dates Condition Status SNOMED Code Problem Dental caries K02.9 Active 57664552 Problem Tobacco abuse Z72.0 Active 98100027 Problem Anxiety F41.9 Active 93915823 Problem Essential hypertension I10 Active 48680329 Problem Abscess L02.91 Active 520930225 Problem Pain in right knee M25.561 Active 75223949 Problem Tobacco abuse counseling Z71.6 Active 153597729 Problem Primary insomnia F51.01 Active 6826474 Problem Other chronic pain G89.29 Active 32924137 Problem Primary osteoarthritis of right knee M17.11 Active 353818994 Problem Type 2 diabetes mellitus without complications E11.9 Active 01452889 Problem Morbid obesity with BMI of 45.0-49.9, adult Z68.42 Active 835921198 Problem Low HDL (under 40) E78.6 Active 849023608 Problem Routine health maintenance Z00.00 Active 749603506 ALLERGIES No Information SOCIAL HISTORY Never Assessed PLAN OF CARE VITAL SIGNS MEDICATIONS No Known Medications RESULTS No Results PROCEDURES No Known procedures IMMUNIZATIONS No Known Immunizations MEDICAL (GENERAL) HISTORY Type Description Date Medical History diabetes mellitus Medical History depression Medical History hypertension Surgical History skin infection removal- fungal type-was on microfungin and wound vac to the right abdomen- one also on the left abdomen Hospitalization History Surgery only
--- OUTSIDE RECORDS SUMMARY | 2018-12-21 12:35 | XMS REPORT ---
Author Author JAMESONCOSME Organization [facility] Address [address] [place] [address] Care Team Providers Care First Grade Teacher Name Role Phone COSME BARBA Unavailable PROBLEMS Type Condition ICD9-CM Code BZP96-UT Code Onset Dates Condition Status SNOMED Code Problem Primary osteoarthritis of right knee M17.11 Active 235033659 Problem Dental caries K02.9 Active 21900838 Problem Type 2 diabetes mellitus without complications E11.9 Active 28336822 Problem Low HDL (under 40) E78.6 Active 554196062 Problem Morbid (severe) obesity due to excess calories E66.01 Active 512259541 Problem Body mass index (BMI) of 50-59.9 in adult Z68.43 Active 933101300 Problem Tobacco abuse counseling Z71.6 Active 055887440 Problem Tobacco abuse Z72.0 Active 35043459 Problem Essential hypertension I10 Active 83956178 Problem Primary insomnia F51.01 Active 8460828 ALLERGIES No Information ENCOUNTERS Encounter Location Date Diagnosis [place] [id number] [place] [address]11- 0535 Mar, [place] [address] [place] [id number] [place] [address] 35811- 0278 December, Type 2 diabetes mellitus without complications E11.9 [facility] [id number] [place] [address] 50915- 7976 December, [place] [address] [address]- [address]92 Nov, Type 2 diabetes mellitus without complications E11.9 [place] [address] [place] [address] [id number] [place] [address] 27779- 4548 Nov, Type 2 diabetes mellitus without complications E11.9 ; BMI 45.0-49.9, adult Z68.42 ; Essential hypertension I10 ; Tobacco abuse Z72.0 and Tobacco abuse counseling Z71.6 [place] [address] [place] [address] [id number] [place] [address] 32238- 8275 Nov, Type 2 diabetes mellitus without complications E11.9 [place] [address] [place] [address] [id number] [place] [address] 88491- 2648 Sep, [place] [address] [address]- 0040 Aug, Type 2 diabetes mellitus without complications E11.9 ; BMI 50.0-59.9, adult Z68.43 ; Essential hypertension I10 ; Primary osteoarthritis of right knee M17.11 and Primary insomnia F51.01 [place] [address] [place] [address] [id number] [place] [address] 03356- 5964 Aug, Type 2 diabetes mellitus without complications E11.9 [place] [address] [address] [id number] [place] [address] 25895- 9939 Jul, [facility] [id number] [place] [address] [id number] May, Dental examination Z01.20 [place] [address] [address] [id number] [place] [address] 43368- 5710 May, Type 2 diabetes mellitus without complications E11.9 ; Essential hypertension I10 ; Dental caries K02.9 and Morbid obesity with BMI of 45.0-49.9, adult Z68.42 [place] [address] [address] [id number] [place] [address] 50969- 8629 Apr, [place] [address] [address] [id number] [place] [address] 26173- 1389 Apr, [place] [address] [place] [address] [id number] [place] [address] 15208- 9432 Mar, Type 2 diabetes mellitus without complications E11.9 [place] [address] [place] [id number] [place] [address] 84906- 5802 Jan, Type 2 diabetes mellitus without complications E11.9 ; Tobacco abuse counseling Z71.6 ; Tobacco abuse Z72.0 ; Morbid obesity with BMI of 45.0-49.9, adult Z68.42 and Essential hypertension I10 [place] [address] [place] [address] [id number] [place] [address] [id number]- 3584 Jan, [facility] [address] [id number] [place] [address] 24540- 0051 December, [place] [address] [address] [id number] [place] [address] 35326- 5003 Oct, [place] [address] [address] [id number] [place] [address] 92496- 3724 Oct, Type 2 diabetes mellitus without complications E11.9 ; Essential hypertension I10 ; Morbid obesity with BMI of 45.0-49.9, adult Z68.42 and Abscess L02.91 [place] [address] [place] [address] [id number] [place] [address] 54646- 8840 Sep, Type 2 diabetes mellitus without complications E11.9 [place] [address] [address] [id number] [place] [address] 27745- 8221 Sep, Type 2 diabetes mellitus without complications E11.9 [place] [address] [address] [id number] [place] [address] 32521- 9080 Aug, [place] [address] [id number] [address] 3726 Aug, [place] [address] [address] 0903 Aug, [place] [address] [address]- 5743 Jul, [place] [address] [place] [address] [id number] [place] [address] 26102- 1142 Jun, Type 2 diabetes mellitus without complications E11.9 ; Morbid obesity with BMI of 45.0-49.9, adult Z68.42 ; Primary insomnia F51.01 and Abscess L02.91 [place] [address] [place] May, [facility] [address] [address] [address] Apr, [facility] [address] [facility] [id number] 8721 Apr, [facility] [address] [address] [address] Feb, [facility] [address] [id number] [address] 8881 Jan, [facility] [address] Jan, [facility] [address] [address]- 4401 Jan, [facility] [address] [address] 3499 Jan, Pain in right knee M25.561 and Other chronic pain G89.29 [facility] [address] [place] [id number] [address] 1879 Jan, Morbid obesity with BMI of 45.0-49.9, adult Z68.42 ; Type 2 diabetes mellitus without complications E11.9 ; Pain in right knee M25.561 and Other chronic pain G89.29 [facility] [address] [place] [address] [id number] [address]- 5422 Jan, [facility] [address] [id number] [address]- 4975 December, [facility] [address] 4[address] December, [facility] [address] [address] [address] December, [facility] [address] [place] [id number] [address] December, [facility] [address] [facility] [id number] [place] [address]- 1759 December, [facility] [address] [facility] [id number] [address] 9107 December, Routine health maintenance Z00.00 ; Morbid [...] HISTORY Never Assessed REASON FOR VISIT PALS IN- Touo PLAN OF CARE VITAL SIGNS MEDICATIONS [...]
--- OUTSIDE RECORDS SUMMARY | 2018-12-21 12:35 | XMS REPORT ---
Author Author COSME BARBA Organization [facility] Address [address] [place] [address] Care Team Providers Care Engineering Lecturer Name Role Phone JAMESON COSME Unavailable PROBLEMS Type Condition ICD9-CM Code [id number] Code Onset Dates Condition Status SNOMED Code Problem Dental caries K02.9 Active 80201853 Problem Tobacco abuse Z72.0 Active 15417529 Problem Anxiety F41.9 Active 30923297 Problem Essential hypertension I10 Active 03474685 Problem Abscess L02.91 Active 156238624 Problem Pain in right knee M25.561 Active 81512467 Problem Tobacco abuse counseling Z71.6 Active 147986744 Problem Primary insomnia F51.01 Active 3346021 Problem Other chronic pain G89.29 Active 88936633 Problem Primary osteoarthritis of right knee M17.11 Active 808834428 Problem Type 2 diabetes mellitus without complications E11.9 Active 83776336 Problem Morbid obesity with BMI of 45.0-49.9, adult Z68.42 Active 212126266 Problem Low HDL (under 40) E78.6 Active 774978557 Problem Routine health maintenance Z00.00 Active 568690029 ALLERGIES Unknown Allergies SOCIAL HISTORY No smoking Hx information available PLAN OF CARE VITAL SIGNS MEDICATIONS Unknown Medications RESULTS No Results PROCEDURES No Known procedures IMMUNIZATIONS No Known Immunizations
--- OUTSIDE RECORDS SUMMARY | 2018-12-21 12:35 | XMS REPORT ---
Author Author COLINPEPITO BRITT [facility] Address Unknown Care Team Providers Care Inspector Balance Wheel Motion Name Role Phone PEPITO VERMA Unavailable PROBLEMS Type Condition ICD9-CM Code RMM63-TA Code Onset Dates Condition Status SNOMED Code Problem Primary osteoarthritis of right knee M17.11 Active 306873167 Problem Dental caries K02.9 Active 33986200 Problem Type 2 diabetes mellitus without complications E11.9 Active 38164956 Problem Low HDL (under 40) E78.6 Active 926003620 Problem Morbid (severe) obesity due to excess calories E66.01 Active 937830668 Problem Body mass index (BMI) of 50-59.9 in adult Z68.43 Active 295689863 Problem Tobacco abuse counseling Z71.6 Active 088244110 Problem Tobacco abuse Z72.0 Active 82487920 Problem Essential hypertension I10 Active 70963937 Problem Primary insomnia F51.01 Active 6574605 ALLERGIES No Known Allergies ENCOUNTERS Encounter Location Date Diagnosis [place] [address] [place] [address] [id number] [place] [address] 98455- 5627 December, [place] [address] [place] [id number] [place] [address] 12134- 4111 Nov, Type 2 diabetes mellitus without complications E11.9 [place] [address] [place] [id number] [place] [address] 88394- 8080 Nov, Type 2 diabetes mellitus without complications E11.9 ; BMI 45.0-49.9, adult Z68.42 ; Essential hypertension I10 ; Tobacco abuse Z72.0 and Tobacco abuse counseling Z71.6 [place] [address] [place] [id number] [place] [address] 11673- 7125 Nov, Type 2 diabetes mellitus without complications E11.9 [place] [address] 30663- 7382 Sep, [facility] [address] [place] [address] 42235- 4192 Aug, Type 2 diabetes mellitus without complications E11.9 ; BMI 50.0-59.9, adult Z68.43 ; Essential hypertension I10 ; Primary osteoarthritis of right knee M17.11 and Primary insomnia F51.01 [place] [address] [place] [id number] [place] [address] 64939- 7294 Aug, Type 2 diabetes mellitus without complications E11.9 [place] [address] [place] [id number] [place] [address] 08387- 6225 Jul, [facility] [id number] [place] [address] [id number] May, Dental examination Z01.20 [place] [address] [place] [id number] [place] [address] 75108- 7431 May, Type 2 diabetes mellitus without complications E11.9 ; Essential hypertension I10 ; Dental caries K02.9 and Morbid obesity with BMI of 45.0-49.9, adult Z68.42 [place] [address] [place] [id number] [place] [address] 96849- 4765 Apr, [place] [address] [place] [id number] [place] [address] 12107- 7240 Apr, [place] [address] [place] [address] 66632- 3201 Mar, Type 2 diabetes mellitus without complications E11.9 [place] [address] [place] [id number] [place] [address] 07199- 2098 Jan, Type 2 diabetes mellitus without complications E11.9 ; Tobacco abuse counseling Z71.6 ; Tobacco abuse Z72.0 ; Morbid obesity with BMI of 45.0-49.9, adult Z68.42 and Essential hypertension I10 [place] [address] [place] [id number] [place] [address] 25223- 1492 Jan, [place] [address] [place] [id number] [place] [address] 19150- 6012 December, [facility] [address], [place] [address]- 3678 Oct, [facility] [address] [place] [address] 81276- 2662 Oct, Type 2 diabetes mellitus without complications E11.9 ; Essential hypertension I10 ; Morbid obesity with BMI of 45.0-49.9, adult Z68.42 and Abscess L02.91 [facility] [address], [place] [address]- 7815 Sep, Type 2 diabetes mellitus without complications E11.9 [facility] [address] [place] [id number] [place] [address] 55475- 8717 Sep, Type 2 diabetes mellitus without complications E11.9 [facility] [address] [place] [id number] [address]- 3908 Aug, [facility] [address], [place] [address]- 3312 Aug, [facility] [address], [place] [address]- 6042 Aug, [facility] [address], [place] [address]- 2746 Jul, [facility] [address], [place] [address]- 5443 Jun, Type 2 diabetes mellitus without complications E11.9 ; Morbid obesity with BMI of 45.0-49.9, adult Z68.42 ; Primary insomnia F51.01 and Abscess L02.91 [facility] [address], [place] [address]- 4303 May, [facility] [address] [address] 6140 Apr, [facility] [address], [place] [address]- 9449 Apr, [facility] [address] [facility] [id number] [address]- 6482 Feb, [facility] [address], [place] [address]- 6693 Jan, [facility] [address], [place] [address]- 1021 Jan, [facility] [address], [place] [address]- 0122 Jan, [facility] [address], [place] [address]- 6166 Jan, Pain in right knee M25.561 and Other chronic pain G89.29 [facility] [address], [place] [address]- 2757 Jan, Morbid obesity with BMI of 45.0-49.9, adult Z68.42 ; Type 2 diabetes mellitus without complications E11.9 ; Pain in right knee M25.561 and Other chronic pain G89.29 [facility] [address] [id number], [place] [address]- 3331 Jan, [facility] [address], [place] [address]- 6102 December, [facility] [address] [place] [id number], [place] [address]- 7246 December, [facility] [address], [place] [address]- 5840 December, [facility] [address] [place] [id number], [place] [address]- 9162 December, [facility] [address] [address] 2343 December, [facility] [address] [place] [address] [id number] 3860 December, Routine health maintenance Z00.00 ; Morbid [...] SOCIAL HISTORY Never Assessed REASON FOR VISIT jonatan PLAN OF CARE VITAL SIGNS Height 70 in 2017-06-14 Blood pressure systolic 129 mmHg 2017-06-14 Blood pressure diastolic 80 mmHg 2017-06-14 MEDICATIONS Medication Instructions Dosage Frequency Start Date End Date Duration Status Glucocard Expression Test 1 subcutaneously 2 times a day test 2 times per day 12h 12 May, 2017 12 months Active GlipiZIDE 10 mg Orally 2 times a day 1 tablet 12h 20 Jan, 2017 90 days Active Toujeo SoloStar 300 UNIT/ML Subcutaneous at bedtime 60 units Active Glucocard Expression Test - In Vitro 2 times a day as directed 12h 12 May, 2017 25 days Active Sitagliptin Phosphate 100 mg Orally Once a day 1 tablet 24h May, 90 days Active Metformin HCl 1000 MG Orally Twice a day 1 tablet with meals 12h 90 days Active Cozaar 25 MG Orally Once a day 1/2 tablet 24h 03 Jan, 2016 90 days Active RESULTS No Results PROCEDURES Procedure Date Ordered Result Body Site LTD ORAL EVALUATION - PROBLEM FOCUS Jun 14, 2017 INTRAORL-PERIAPICAL 1 FILM 00390 Jun 14, 2017 INTRAORL-PERIAPICAL EA ADD FILM Jun 14, 2017 INSTRUCTIONS MEDICATIONS ADMINISTERED No Known Medications MEDICAL (GENERAL) HISTORY Type Description Date Medical History diabetes mellitus Medical History depression Medical History hypertension Medical History Anxiety Surgical History skin infection removal- fungal type-was on microfungin and wound vac to the right abdomen- one also on the left abdomen Hospitalization History Surgery only
--- OUTSIDE RECORDS SUMMARY | 2018-12-21 12:35 | XMS REPORT ---
Author Author COSME BARBA Organization [facility] Address [address] [place] [address] Care Team Providers Care Fructose Loader Name Role Phone COSME BARBA Unavailable PROBLEMS Type Condition ICD9-CM Code QGQ55-OV Code Onset Dates Condition Status SNOMED Code Problem Family history of hypertension Z82.49 Active 551320651 Problem Dental caries K02.9 Active 38452419 Problem Family history of diabetes mellitus Z83.3 Active 178118512 Problem Primary osteoarthritis of right knee M17.11 Active 013426520 Problem Tobacco abuse Z72.0 Active 40289729 Problem Tobacco abuse counseling Z71.6 Active 544582474 Problem Family history of cancer Z80.9 Active 830376503 Problem Pain in right knee M25.561 Active 14752282 Problem Other chronic pain G89.29 Active 21649488 Problem Type 2 diabetes mellitus without complications E11.9 Active 84734541 Problem Anxiety F41.9 Active 99029740 Problem Routine health maintenance Z00.00 Active 742225290 Problem Morbid obesity with BMI of 45.0-49.9, adult Z68.42 Active 341521646 ALLERGIES Unknown Allergies SOCIAL HISTORY No smoking Hx information available PLAN OF CARE VITAL SIGNS MEDICATIONS Medication Instructions Dosage Frequency Start Date End Date Duration Status Metformin HCl 500 MG Orally Twice a day APPT NEEDED FOR REFILL 1 tablet with meals Active RESULTS No Results PROCEDURES No Known procedures IMMUNIZATIONS No Known Immunizations
--- OUTSIDE RECORDS SUMMARY | 2018-12-21 12:35 | XMS REPORT ---
Author Author JAMESONMAKICOMSE [facility] Address [address] [place] [address] Care Team Providers Care Power Wood Sawyer Name Role Phone COSME BARBA Unavailable PROBLEMS Type Condition ICD9-CM Code [id number] Code Onset Dates Condition Status SNOMED Code Problem Primary osteoarthritis of right knee M17.11 Active 872825817 Problem Dental caries K02.9 Active 42707114 Problem Type 2 diabetes mellitus without complications E11.9 Active 01212939 Problem Low HDL (under 40) E78.6 Active 956906079 Problem Morbid (severe) obesity due to excess calories E66.01 Active 099200307 Problem Body mass index (BMI) of 50-59.9 in adult Z68.43 Active 569360270 Problem Tobacco abuse counseling Z71.6 Active 012004159 Problem Tobacco abuse Z72.0 Active 16539118 Problem Essential hypertension I10 Active 43076094 Problem Primary insomnia F51.01 Active 1476421 ALLERGIES No Information ENCOUNTERS Encounter Location Date Diagnosis [place] [id number] [place] [address]127- 9107 December, Type 2 diabetes mellitus without complications E11.9 [place] [id number] [place] [address] 53155- 3574 December, [place] [id number] [place] [address] 87262- 8492 Nov, Type 2 diabetes mellitus without complications E11.9 [place] [address] [address]- [address] Nov, Type 2 diabetes mellitus without complications E11.9 ; BMI 45.0-49.9, adult Z68.42 ; Essential hypertension I10 ; Tobacco abuse Z72.0 and Tobacco abuse counseling Z71.6 [place] [address] [place] [address] Nov, Type 2 diabetes mellitus without complications E11.9 [place] [id number] [place] [address] 55388- 3908 Sep, [place] [id number] [place] [address] 88344- 9770 Aug, Type 2 diabetes mellitus without complications E11.9 ; BMI 50.0-59.9, adult Z68.43 ; Essential hypertension I10 ; Primary osteoarthritis of right knee M17.11 and Primary insomnia F51.01 [place] [id number] [place] [address] 20510- 7651 Aug, Type 2 diabetes mellitus without complications E11.9 [place] [id number] [place] [address] 15283- 4069 Jul, [facility] [id number] [place] [id number] May, Dental examination Z01.20 [place] [id number] [place] [address] 93423- 9907 May, Type 2 diabetes mellitus without complications E11.9 ; Essential hypertension I10 ; Dental caries K02.9 and Morbid obesity with BMI of 45.0-49.9, adult Z68.42 [place] [address] [address] Apr, [place] [id number] [place] [address] 18482- 2627 Apr, [place] [address] [address] 3228 Mar, Type 2 diabetes mellitus without complications E11.9 [place] [id number] [place] [address] 22783- 4758 Jan, Type 2 diabetes mellitus without complications E11.9 ; Tobacco abuse counseling Z71.6 ; Tobacco abuse Z72.0 ; Morbid obesity with BMI of 45.0-49.9, adult Z68.42 and Essential hypertension I10 [facility] [address] [address] 8[address] Jan, [facility] [id number] [address] 6967 December, [facility] [address] [address] 0605 Oct, [facility] [id number] [place] [address] 75087- 6318 Oct, Type 2 diabetes mellitus without complications E11.9 ; Essential hypertension I10 ; Morbid obesity with BMI of 45.0-49.9, adult Z68.42 and Abscess L02.91 [facility] [address] [address] 7306 Sep, Type 2 diabetes mellitus without complications E11.9 [facility] [id number] [place] [address] 84274- 5267 Sep, Type 2 diabetes mellitus without complications E11.9 [facility] [address] [address] 7184 Aug, [facility] [address] [address] 8057 Aug, [facility] [address] [address]- 2489 Aug, [facility] [address] [address]- 2699 Jul, [facility] [address] [address]- 7845 Jun, Type 2 diabetes mellitus without complications E11.9 ; Morbid obesity with BMI of 45.0-49.9, adult Z68.42 ; Primary insomnia F51.01 and Abscess L02.91 [facility] [address] [address] 0018 May, [facility] [address] [address]- 0663 Apr, [facility] [address] [address] Apr, [facility] [address] 15[address] Feb, [facility] [address] [address]- 1372 Jan, [facility] [address] [address]- 9509 Jan, [facility] [address] 97[address] Jan, [facility] [address] [address]- 1448 Jan, Pain in right knee M25.561 and Other chronic pain G89.29 [facility] [address] [address]- 8501 Jan, Morbid obesity with BMI of 45.0-49.9, adult Z68.42 ; Type 2 diabetes mellitus without complications E11.9 ; Pain in right knee M25.561 and Other chronic pain G89.29 [facility] [address] [address]- 2279 Jan, [facility] [address] [id number] [address]- 1806 December, [facility] [address] [address]- 6731 December, [facility] [address] 8215 December, [facility] [address] 4264 December, [facility] [address] 9807 December, [facility] [address] [facility] [id number] [place] [address]- 8789 December, Routine health maintenance Z00.00 ; Morbid [...]
--- OUTSIDE RECORDS SUMMARY | 2018-12-21 12:35 | XMS REPORT ---
Author Author JAMESON COSME Organization [facility] Address [address] [place] [address] Care Team Providers Care Float Operator Name Role Phone BARBA COSME Unavailable PROBLEMS Type Condition ICD9-CM Code PIU91-XA Code Onset Dates Condition Status SNOMED Code Problem Anxiety F41.9 Active 88554973 Problem Morbid obesity with BMI of 45.0-49.9, adult Z68.42 Active 914519989 Problem Type 2 diabetes mellitus without complications E11.9 Active 36010314 Problem Essential hypertension I10 Active 53457673 Problem Abscess L02.91 Active 821424815 Problem Other chronic pain G89.29 Active 72518305 Problem Routine health maintenance Z00.00 Active 811777930 Problem Primary insomnia F51.01 Active 3561069 Problem Pain in right knee M25.561 Active 81797195 Problem Primary osteoarthritis of right knee M17.11 Active 407311793 Problem Tobacco abuse Z72.0 Active 66029191 Problem Tobacco abuse counseling Z71.6 Active 496949537 Problem Low HDL (under 40) E78.6 Active 305073563 Problem Dental caries K02.9 Active 98308589 ALLERGIES Unknown Allergies SOCIAL HISTORY No smoking Hx information available PLAN OF CARE VITAL SIGNS MEDICATIONS Unknown Medications RESULTS No Results PROCEDURES No Known procedures IMMUNIZATIONS No Known Immunizations
--- OUTSIDE RECORDS SUMMARY | 2018-12-21 12:35 | XMS REPORT ---
Author Author COSME BARBA Organization [employer] Address Unknown Phone Unavailable Care Team Providers Care Cable Strander Name Role Phone COSME BARBA CP Unavailable Allergies No Known Allergies Problems Problem Type Condition Code Onset Dates Condition Status Problem Family history of cancer Z80.9 Active Problem Family history of diabetes mellitus Z83.3 Active Problem Family history of hypertension Z82.49 Active Problem Other chronic pain G89.29 Active Problem Routine health maintenance Z00.00 Active Problem Pain in right knee M25.561 Active Problem Anxiety F41.9 Active Problem Dental caries K02.9 Active Problem Morbid obesity with BMI of 45.0-49.9, adult Z68.42 Active Problem Type 2 diabetes mellitus without complications E11.9 Active Problem Primary osteoarthritis of right knee M17.11 Active Problem Tobacco abuse Z72.0 Active Problem Tobacco abuse counseling Z71.6 Active Medications Medication Code System Code Instructions Start Date End Date Status Dosage GlipiZIDE [facility] [address]-56 5 mg Orally twice a day APPT NEEDED FOR REFILL 1 tablet Metformin HCl [facility] [address]-75 500 MG Orally Twice a day APPT NEEDED FOR REFILL 1 tablet with meals Results No Known Results Summary Purpose [employer] Submission
--- OUTSIDE RECORDS SUMMARY | 2018-12-21 12:36 | XMS REPORT ---
Author Author JAMESONMAKICOSME [facility] Address [address] [place] [address] Care Team Providers Care Claims Sorter Name Role Phone COSME BARBA Unavailable PROBLEMS Type Condition ICD9-CM Code SUK39-VX Code Onset Dates Condition Status SNOMED Code Problem Primary osteoarthritis of right knee M17.11 Active 145361921 Problem Dental caries K02.9 Active 28855465 Problem Type 2 diabetes mellitus without complications E11.9 Active 10541047 Problem Low HDL (under 40) E78.6 Active 518959891 Problem Morbid (severe) obesity due to excess calories E66.01 Active 821729921 Problem Body mass index (BMI) of 50-59.9 in adult Z68.43 Active 028881508 Problem Tobacco abuse counseling Z71.6 Active 055558037 Problem Tobacco abuse Z72.0 Active 57381945 Problem Essential hypertension I10 Active 92176516 Problem Primary insomnia F51.01 Active 8318841 ALLERGIES No Information ENCOUNTERS Encounter Location Date Diagnosis [place] [id number] [place] [address] 76864- 2353 December, Type 2 diabetes mellitus without complications E11.9 [place] [id number] [place] [address] 56789- 2422 December, [place] [id number] [place] [address] 77487- 8368 Nov, Type 2 diabetes mellitus without complications E11.9 [place] [address] [address]- 8781 Nov, Type 2 diabetes mellitus without complications E11.9 ; BMI 45.0-49.9, adult Z68.42 ; Essential hypertension I10 ; Tobacco abuse Z72.0 and Tobacco abuse counseling Z71.6 [place] [address] [place] [address]- 8307 Nov, Type 2 diabetes mellitus without complications E11.9 [place] [id number] [place] [address] 85638- 5083 Sep, [place] [id number] [place] [address] 87415- 7912 Aug, Type 2 diabetes mellitus without complications E11.9 ; BMI 50.0-59.9, adult Z68.43 ; Essential hypertension I10 ; Primary osteoarthritis of right knee M17.11 and Primary insomnia F51.01 [place] [id number] [place] [address] 33090- 9177 Aug, Type 2 diabetes mellitus without complications E11.9 [place] [id number] [place] [address] 07062- 1603 Jul, [facility] [id number] [place] [address] [id number] May, Dental examination Z01.20 [place] [id number] [place] [address] 85622- 3326 May, Type 2 diabetes mellitus without complications E11.9 ; Essential hypertension I10 ; Dental caries K02.9 and Morbid obesity with BMI of 45.0-49.9, adult Z68.42 [place] [address], [place] [address]- 8485 Apr, [place] [address] [place] [address] 57247- 4355 Apr, [place] [address], [place] [address]- 9901 Mar, Type 2 diabetes mellitus without complications E11.9 [place] [id number] [place] [address] 78490- 2295 Jan, Type 2 diabetes mellitus without complications E11.9 ; Tobacco abuse counseling Z71.6 ; Tobacco abuse Z72.0 ; Morbid obesity with BMI of 45.0-49.9, adult Z68.42 and Essential hypertension I10 [facility] [address], [place] [address]- 4080 Jan, [facility] [id number], [place] [address]- 5126 December, [facility] [address], [place] [address]- 4583 Oct, [facility] [id number] [place] [address] 81433- 1871 Oct, Type 2 diabetes mellitus without complications E11.9 ; Essential hypertension I10 ; Morbid obesity with BMI of 45.0-49.9, adult Z68.42 and Abscess L02.91 [facility] [address], [place] [address]- 6623 Sep, Type 2 diabetes mellitus without complications E11.9 [facility] [id number] [place] [address] 87528- 3217 Sep, Type 2 diabetes mellitus without complications E11.9 [facility] [address], [place] [address]- 6533 Aug, [facility] [address], [place] [address]- 5596 Aug, [facility] [address], [place] [address]- 3554 Aug, [facility] [address], [place] [address]- 2689 Jul, [facility] [address], [place] [address]- 6691 Jun, Type 2 diabetes mellitus without complications E11.9 ; Morbid obesity with BMI of 45.0-49.9, adult Z68.42 ; Primary insomnia F51.01 and Abscess L02.91 [facility] [address], [place] [address]- 0540 May, [facility] [address] [address]- 6953 Apr, [facility] [address] 6450 Apr, [facility] [address] 7603 Feb, [facility] [address], [place] [address]- 3102 Jan, [facility] [address], [place] [address]- 7981 Jan, [facility] [address] 3839 Jan, [facility] [address], [place] [address]- 5342 Jan, Pain in right knee M25.561 and Other chronic pain G89.29 [facility] [address], [place] [address]- 2483 Jan, Morbid obesity with BMI of 45.0-49.9, adult Z68.42 ; Type 2 diabetes mellitus without complications E11.9 ; Pain in right knee M25.561 and Other chronic pain G89.29 [facility] [address], [place] [address]- 9433 Jan, [facility] [id number], [place] [address]- 1257 December, [facility] [address], [place] [address]- 3719 December, [facility] [address]- 8746 December, [facility] [address] [address] December, [facility] [address] 8065 December, [facility] [address] [facility] [id number] [place] [address]- 9775 December, Routine health maintenance Z00.00 ; Morbid [...] HISTORY Never Assessed REASON FOR VISIT PALS IN-[place] PLAN OF CARE VITAL SIGNS MEDICATIONS Unknown [...]
--- OUTSIDE RECORDS SUMMARY | 2018-12-21 12:36 | XMS REPORT ---
Author Author JAMESONMAKICOSME [facility] Address [address] [place] [address] Care Team Providers Care Hull Drafter Name Role Phone COSME BARBA Unavailable PROBLEMS Type Condition ICD9-CM Code VSU58-KP Code Onset Dates Condition Status SNOMED Code Problem Primary osteoarthritis of right knee M17.11 Active 360847209 Problem Dental caries K02.9 Active 91474992 Problem Type 2 diabetes mellitus without complications E11.9 Active 05595719 Problem Low HDL (under 40) E78.6 Active 962558362 Problem Morbid (severe) obesity due to excess calories E66.01 Active 552280218 Problem Body mass index (BMI) of 50-59.9 in adult Z68.43 Active 786761114 Problem Tobacco abuse counseling Z71.6 Active 488369536 Problem Tobacco abuse Z72.0 Active 68055450 Problem Essential hypertension I10 Active 45721427 Problem Primary insomnia F51.01 Active 8184550 ALLERGIES No Known Allergies ENCOUNTERS Encounter Location Date Diagnosis [place] [id number] [place] [address] 64418- 2706 December, Type 2 diabetes mellitus without complications E11.9 [place] [address] [address] 3527 December, [place] [address] [place] [id number] [place] [address] 00830- 1200 Nov, Type 2 diabetes mellitus without complications E11.9 [place] [address] [place] [id number] [place] [address] 48395- 6089 Nov, Type 2 diabetes mellitus without complications E11.9 ; BMI 45.0-49.9, adult Z68.42 ; Essential hypertension I10 ; Tobacco abuse Z72.0 and Tobacco abuse counseling Z71.6 [place] [address] [place] [id number] [address] 7236 Nov, Type 2 diabetes mellitus without complications E11.9 [place] [address] [id number] [place] [address] 22875- 5029 Sep, [place] [address] [id number] [place] [address] 28867- 1665 Aug, Type 2 diabetes mellitus without complications E11.9 ; BMI 50.0-59.9, adult Z68.43 ; Essential hypertension I10 ; Primary osteoarthritis of right knee M17.11 and Primary insomnia F51.01 [place] [id number] [place] [address] 07496- 4291 Aug, Type 2 diabetes mellitus without complications E11.9 [place] [address] [id number] [place] [address] 75596- 7227 Jul, [facility] [id number] [place] [address] [id number] May, Dental examination Z01.20 [place] [id number] [place] [address] 37926- 3826 May, Type 2 diabetes mellitus without complications E11.9 ; Essential hypertension I10 ; Dental caries K02.9 and Morbid obesity with BMI of 45.0-49.9, adult Z68.42 [place] [address] [address]- 5885 Apr, [place] [address] [place] [address] 93843- 7315 Apr, [place] [address], [place] [address]- 3651 Mar, Type 2 diabetes mellitus without complications E11.9 [place] [address] [address]- 5122 Jan, Type 2 diabetes mellitus without complications E11.9 ; Tobacco abuse counseling Z71.6 ; Tobacco abuse Z72.0 ; Morbid obesity with BMI of 45.0-49.9, adult Z68.42 and Essential hypertension I10 [facility] [address], [place] [address] 2649 Jan, [facility] [id number] [place] [address] 42862- 6232 December, [facility] [address], [place] [address]- 2556 Oct, [facility] [id number] [place] [address] 02622- 0681 Oct, Type 2 diabetes mellitus without complications E11.9 ; Essential hypertension I10 ; Morbid obesity with BMI of 45.0-49.9, adult Z68.42 and Abscess L02.91 [facility] [id number] [address] 0839 Sep, Type 2 diabetes mellitus without complications E11.9 [facility] [id number] [place] [address] 58323- 2112 Sep, Type 2 diabetes mellitus without complications E11.9 [facility] [address], [place] [address]- 3880 Aug, [facility] [id number] [place] [address]- 1513 Aug, [facility] [address], [place] [address]- 9798 Aug, [facility] [address], [place] [address]- 5594 Jul, [facility] [address] [address]- 0419 Jun, Type 2 diabetes mellitus without complications E11.9 ; Morbid obesity with BMI of 45.0-49.9, adult Z68.42 ; Primary insomnia F51.01 and Abscess L02.91 [facility] [address], [place] [address]- 5149 May, [facility] [id number] [address]- 3219 Apr, [facility] [address] 8618 Apr, [facility] [address] 1124 Feb, [facility] [address], [place] [address]- 2425 Jan, [facility] [address], [place] [address]- 5850 Jan, [facility] [address] 8640 Jan, [facility] [address], [place] [address]- 5167 Jan, Pain in right knee M25.561 and Other chronic pain G89.29 [facility] [address], [place] [address]- 7453 Jan, Morbid obesity with BMI of 45.0-49.9, adult Z68.42 ; Type 2 diabetes mellitus without complications E11.9 ; Pain in right knee M25.561 and Other chronic pain G89.29 [facility] [address], [place] [address]- 1605 Jan, [facility] [address], [place] [address]- 9227 December, [facility] [address], [place] [address]- 9435 December, [facility] [address] 1542 December, [facility] [address] [address] 9707 December, [facility] [address] 6205 December, [facility] [address] [facility] [id number] [place] [address]- 7057 03 Dec, 2015 Routine health maintenance Z00.00 ; Morbid obesity [...] SOCIAL HISTORY Never Assessed REASON FOR VISIT Diabetes f/u, states no complaints or issues at this time maryann caldwell PLAN OF CARE Activity Details Follow Up 3 Months Reason:CHM/DM VITAL SIGNS Height 70 in 2017-09-07 Weight 348.9 lbs 2017-09-07 Temperature 97.4 degrees Fahrenheit 2017-09-07 Heart Rate 80 bpm 2017-09-07 Respiratory Rate 20 2017-09-07 BMI 50.06 kg/m2 2017-09-07 Blood pressure systolic 132 mmHg 2017-09-07 Blood pressure diastolic 84 mmHg 2017-09-07 MEDICATIONS Medication Instructions Dosage Frequency Start Date End Date Duration Status Toujeo SoloStar 300 UNIT/ML Subcutaneous at bedtime 60 units Active Metformin HCl 1000 MG Orally Twice a day 1 tablet with meals 12h 90 days Active Cozaar 25 MG Orally Once a day 1/2 tablet 24h Jan, 90 days Active Glucocard Expression Test - In Vitro 2 times a day as directed h May, 25 days Active Glucocard Expression Test 1 subcutaneously 2 times a day test 2 times per day 12h May, 12 months Active GlipiZIDE 10 mg Orally 2 times a day 1 tablet 12h 20 Jan, 2017 90 days Active Sitagliptin Phosphate 100 mg Orally Once a day 1 tablet 24h May, 90 days Active RESULTS Name Result Date Reference Range A1C (IN HOUSE) 2017-09-07 A1C IN HOUSE 8.9 4.3 - 5.6 % Previous A1c 9.5 Lot [id number] Exp date 05/2019 PROCEDURES Procedure Date Ordered Result Body Site GLYCATED HEMOGLOBIN TEST Sep 07, 2017 INSTRUCTIONS MEDICATIONS ADMINISTERED No Known Medications MEDICAL (GENERAL) HISTORY Type Description Date Medical History diabetes mellitus Medical History depression Medical History hypertension Medical History Anxiety Surgical History skin infection removal- fungal type-was on microfungin and wound vac to the right abdomen- one also on the left abdomen Hospitalization History Surgery only
--- OUTSIDE RECORDS SUMMARY | 2018-12-21 12:36 | XMS REPORT ---
Author Author JAMESONCOSME Organization [facility] Address [address] [place] [address] Care Team Providers Care Qc Chemist Name Role Phone COSME BARBA Unavailable PROBLEMS Type Condition ICD9-CM Code AEA55-GW Code Onset Dates Condition Status SNOMED Code Problem Primary osteoarthritis of right knee M17.11 Active 173929751 Problem Dental caries K02.9 Active 28044273 Problem Type 2 diabetes mellitus without complications E11.9 Active 12964889 Problem Low HDL (under 40) E78.6 Active 856660220 Problem Morbid (severe) obesity due to excess calories E66.01 Active 699899463 Problem Body mass index (BMI) of 50-59.9 in adult Z68.43 Active 962160881 Problem Tobacco abuse counseling Z71.6 Active 654060945 Problem Tobacco abuse Z72.0 Active 95861094 Problem Essential hypertension I10 Active 64723394 Problem Primary insomnia F51.01 Active 6564251 ALLERGIES No Information ENCOUNTERS Encounter Location Date Diagnosis [place] [address] [place] [address] [id number] [place] [address] 74874- 6150 Nov, Type 2 diabetes mellitus without complications E11.9 ; BMI 45.0-49.9, adult Z68.42 ; Essential hypertension I10 ; Tobacco abuse Z72.0 and Tobacco abuse counseling Z71.6 [facility] [address] [place] [address] 79590- 9321 Nov, Type 2 diabetes mellitus without complications E11.9 [facility] [id number] [place] [address] 84357- 8025 Sep, [place] [id number] [place] [address] 25563- 4574 Aug, Type 2 diabetes mellitus without complications E11.9 ; BMI 50.0-59.9, adult Z68.43 ; Essential hypertension I10 ; Primary osteoarthritis of right knee M17.11 and Primary insomnia F51.01 [facility] [address] [place] [address] 04675- 4946 Aug, Type 2 diabetes mellitus without complications E11.9 [facility] [id number] [place] [address] 45655- 7797 Jul, [facility] [id number] [place] [address] [id number] May, Dental examination Z01.20 [facility] [id number] [place] [address] 19872- 4954 May, Type 2 diabetes mellitus without complications E11.9 ; Essential hypertension I10 ; Dental caries K02.9 and Morbid obesity with BMI of 45.0-49.9, adult Z68.42 [facility] [id number] [place] [address] 38477- 9102 Apr, [facility] [id number] [place] [address] 33210- 0606 Apr, [facility] [id number] [place] [address] 10052- 6454 Mar, Type 2 diabetes mellitus without complications E11.9 [facility] [address] [place] [address] 89879- 3973 Jan, Type 2 diabetes mellitus without complications E11.9 ; Tobacco abuse counseling Z71.6 ; Tobacco abuse Z72.0 ; Morbid obesity with BMI of 45.0-49.9, adult Z68.42 and Essential hypertension I10 [facility] [address], [place] [address]- 0589 Jan, [facility] [id number] [place] [address] 55815- 7559 December, [facility] [id number] [place] [address] 32824- 3469 Oct, [facility] [id number], [place] [address]- 1396 Oct, Type 2 diabetes mellitus without complications E11.9 ; Essential hypertension I10 ; Morbid obesity with BMI of 45.0-49.9, adult Z68.42 and Abscess L02.91 [facility] [id number], [place] [address]- 2756 Sep, Type 2 diabetes mellitus without complications E11.9 [facility] [id number] [place] [address] 20032 2546 Sep, Type 2 diabetes mellitus without complications E11.9 [facility] [id number] [place] [address] 47025- 5766 Aug, [facility] [id number] [place] [address] 09158- 0780 Aug, [facility] [id number] [place] [address] 21309- 0323 Aug, [facility] [id number], [place] [address]- 9718 Jul, [facility] [id number] [place] [address] 55465- 1122 Jun, Type 2 diabetes mellitus without complications E11.9 ; Morbid obesity with BMI of 45.0-49.9, adult Z68.42 ; Primary insomnia F51.01 and Abscess L02.91 [facility] [address], [place] [address]- 7246 May, [facility] [address], [place] [address] 2546 Apr, [facility] [id number] [place] [address] 53106- 8046 Apr, [facility] [address], [place] [address] 2546 Feb, [facility] [id number] [place] [address] 96918- 9800 Jan, [facility] [address], [place] [address]- 5061 Jan, [facility] [address], [place] [address]- 4307 Jan, [facility] [address], [place] [address]- 9633 14 Jan, 2016 Pain in right knee M25.561 and Other chronic pain G89.29 [facility] [address], [place] [address]- 8316 03 Jan, 2016 Morbid obesity with BMI of 45.0-49.9, adult Z68.42 ; Type 2 diabetes mellitus without complications E11.9 ; Pain in right knee M25.561 and Other chronic pain G89.29 [facility] [address], [place] [address]- 9710 Jan, [facility] [address], [place] [address]- 7846 December, [facility] [address], [place] [address]- 0424 December, [facility] [address] [place] [address] 79717- 7036 December, [facility] [address], [place] [address]- 6718 December, [facility] [address], [place] [address]- 1289 December, [facility] [id number], [place] [address]- 8526 December, Routine health maintenance Z00.00 ; Morbid [...] Never Assessed REASON FOR VISIT PALS IN-Toujeo Pens PLAN OF CARE VITAL SIGNS MEDICATIONS No [...]
--- OUTSIDE RECORDS SUMMARY | 2018-12-21 12:36 | XMS REPORT ---
Author Author JAMESONMAKICOSME [facility] Address [address] [place] [address] Care Team Providers Care Incinerator Plant General Supervisor Name Role Phone COSME BARBA Unavailable PROBLEMS Type Condition ICD9-CM Code SSK23-VI Code Onset Dates Condition Status SNOMED Code Problem Primary osteoarthritis of right knee M17.11 Active 152327685 Problem Dental caries K02.9 Active 82448637 Problem Type 2 diabetes mellitus without complications E11.9 Active 83175155 Problem Low HDL (under 40) E78.6 Active 225491308 Problem Morbid (severe) obesity due to excess calories E66.01 Active 082016328 Problem Body mass index (BMI) of 50-59.9 in adult Z68.43 Active 880308952 Problem Tobacco abuse counseling Z71.6 Active 937467255 Problem Tobacco abuse Z72.0 Active 85046311 Problem Essential hypertension I10 Active 35930865 Problem Primary insomnia F51.01 Active 8388696 ALLERGIES No Known Allergies ENCOUNTERS Encounter Location Date Diagnosis [place] [id number] [place] [address] 36110- 8653 Nov, Type 2 diabetes mellitus without complications E11.9 [place] [address] [place] [address] [id number] [place] [address] 40470- 2538 Nov, Type 2 diabetes mellitus without complications E11.9 ; BMI 45.0-49.9, adult Z68.42 ; Essential hypertension I10 ; Tobacco abuse Z72.0 and Tobacco abuse counseling Z71.6 [place] [address] [address]- 3771 Nov, Type 2 diabetes mellitus without complications E11.9 [place] [address] [place] [id number] [place] [address] 64897- 3138 Sep, [place] [address] [place] [address]- 0786 Aug, Type 2 diabetes mellitus without complications E11.9 ; BMI 50.0-59.9, adult Z68.43 ; Essential hypertension I10 ; Primary osteoarthritis of right knee M17.11 and Primary insomnia F51.01 [facility] [address], [place] [address]- 1617 Aug, Type 2 diabetes mellitus without complications E11.9 [place] [id number] [place] [address] 54554- 2892 Jul, [facility] [id number] [place] [address] [id number] May, Dental examination Z01.20 [place] [id number] [place] [address] 21214- 8978 May, Type 2 diabetes mellitus without complications E11.9 ; Essential hypertension I10 ; Dental caries K02.9 and Morbid obesity with BMI of 45.0-49.9, adult Z68.42 [place] [id number] [place] [address] 23779- 1985 Apr, [place] [id number] [place] [address] 17727- 5943 Apr, [place] [id number] [place] [address] 91298- 1082 Mar, Type 2 diabetes mellitus without complications E11.9 [place] [id number] [place] [address] 82486- 9860 Jan, Type 2 diabetes mellitus without complications E11.9 ; Tobacco abuse counseling Z71.6 ; Tobacco abuse Z72.0 ; Morbid obesity with BMI of 45.0-49.9, adult Z68.42 and Essential hypertension I10 [facility] [address] [place] [address] 02001- 3807 Jan, [place] [id number] [place] [address] 40075- 8161 December, [place] [address], [place] [address]- 1985 Oct, [facility] [address], [place] [address]- 7129 Oct, Type 2 diabetes mellitus without complications E11.9 ; Essential hypertension I10 ; Morbid obesity with BMI of 45.0-49.9, adult Z68.42 and Abscess L02.91 [facility] [id number] [place] [address] 76741- 6461 Sep, Type 2 diabetes mellitus without complications E11.9 [facility] [address] [address]- 0016 Sep, Type 2 diabetes mellitus without complications E11.9 [facility] [address], [place] [address]- 2005 Aug, [facility] [id number] [place] [address] 49489- 9271 Aug, [facility] [address], [place] [address]- 8249 Aug, [facility] [address], [place] [address]- 2197 Jul, [facility] [address], [place] [address]- 8031 Jun, Type 2 diabetes mellitus without complications E11.9 ; Morbid obesity with BMI of 45.0-49.9, adult Z68.42 ; Primary insomnia F51.01 and Abscess L02.91 [facility] [address], [place] [address]- 1545 May, [facility] [address], [place] [address]- 0677 Apr, [facility] [address], [place] [address]- 6413 Apr, [facility] [address], [place] [address]- 1435 Feb, [facility] [id number], [place] [address]- 1816 Jan, [facility] [address], [place] [address]- 9154 Jan, [facility] [address], [place] [address]- 5790 Jan, [facility] [address], [place] [address]- 1421 Jan, Pain in right knee M25.561 and Other chronic pain G89.29 [facility] [id number], [place] [address]- 6450 Jan, Morbid obesity with BMI of 45.0-49.9, adult Z68.42 ; Type 2 diabetes mellitus without complications E11.9 ; Pain in right knee M25.561 and Other chronic pain G89.29 [facility] [id number], [place] [address]- 0404 Jan, [facility] [id number], [place] [address]- 2112 December, [facility] [address], [place] [address]- 8301 December, [facility] [id number], [place] [address]- 7491 December, [facility] [address], [place] [address]- 3127 December, [facility] [id number], [place] [address]- 6667 December, [facility] [address] [address]- 4925 December, Routine health maintenance Z00.00 ; Morbid [...] SOCIAL HISTORY Never Assessed REASON FOR VISIT Diabetes---DBennettNithyaN PLAN OF CARE Activity Details Follow Up 3 Months Reason:CHM/DM VITAL SIGNS Height 70 in 2017-05-31 Weight 351 lbs 2017-05-31 Temperature 98.3 degrees Fahrenheit 2017-05-31 Heart Rate 90 bpm 2017-05-31 Respiratory Rate 20 2017-05-31 BMI 50.36 kg/m2 2017-05-31 Blood pressure systolic 122 mmHg 2017-05-31 Blood pressure diastolic 80 mmHg 2017-05-31 MEDICATIONS Medication Instructions Dosage Frequency Start Date End Date Duration Status GlipiZIDE 10 mg Orally 2 times a day 1 tablet 12h 20 Jan, 2017 90 days Active Toujeo SoloStar 300 UNIT/ML Subcutaneous at bedtime 60 units Active Glucocard Expression Test 1 subcutaneously 2 times a day test 2 times per day 12h May, 12 months Active Sitagliptin Phosphate 100 mg Orally Once a day 1 tablet 24h 12 May, 2017 90 days Active Glucocard Expression Test - In Vitro 2 times a day as directed 12h May, 25 days Active Cozaar 25 MG Orally Once a day 1/2 tablet 24h 03 Jan, 2016 90 days Active Metformin HCl 1000 MG Orally Twice a day 1 tablet with meals 12h 90 days Active RESULTS Name Result Date Reference Range A1C (IN HOUSE) 2017-05-31 A1C IN HOUSE 9.5 4.3 - 5.6 % Previous A1c 8.7 Lot [id number] Exp date 03/07 MICROALBUMIN, URINE (IN HOUSE) 2017-05-31 MICROALBUMIN normal Lot # [id number] Exp date 05/19/18 Clarity clear Color yellow ALB 10mg/L CRE 100mg/dL A:C (IN HOUSE) <30 mg/g Control Control Lot # Exp date PROCEDURES Procedure Date Ordered Result Body Site GLYCATED HEMOGLOBIN TEST May 31, 2017 MICROALBUMIN, SEMIQUANT May 31, 2017 INSTRUCTIONS MEDICATIONS ADMINISTERED No Known Medications MEDICAL (GENERAL) HISTORY Type Description Date Medical History diabetes mellitus Medical History depression Medical History hypertension Medical History Anxiety Surgical History skin infection removal- fungal type-was on microfungin and wound vac to the right abdomen- one also on the left abdomen Hospitalization History Surgery only
--- NOTE | 2018-12-21 12:46 | ED Back Pain ---
General Stated Complaint: BACK PAIN Source of Information: Patient Exam Limitations: No Limitations History of Present Illness Date Seen by Provider: December 21, 2018 Time Seen by Provider: 12:43 Initial Comments To ER with a one-week history of right low back pain. The pain does not radiate down either leg, no loss of sensation of genitals, no loss of control of bowel or bladder. No fevers or chills. No injury that he can recall. No nausea or vomiting. Pain is worse with straining, especially with having bowel movements. Location: Lumbar Spine Timing/Duration: 1 Week Severity: Moderate Pain/Injury Location: Back Method of Injury: Unknown Associated Symptoms: No fever Allergies and Home Medications Allergies Uncoded Allergies: ANESTHESIA (Adverse Reaction, Unknown, 12/21/18) Patient Home Medication List Home Medication List Reviewed: Yes Review of Systems Constitutional: see HPI; No chills, No fever EENTM: see HPI Respiratory: no symptoms reported Cardiovascular: no symptoms reported Genitourinary: no symptoms reported Musculoskeletal: see HPI, back pain Skin: no symptoms reported Psychiatric/Neurological: No Symptoms Reported Past Bhnhtqi-Zahocf-Yfvoqt Hx Patient Social History Recent Foreign Travel: No Contact w/Someone Who Travel: No Physical Exam Vital Signs Vital Signs - First Documented 12/21/18 13:10 Temp 98.5 Pulse 83 Resp 16 B/P (MAP) 155/89 (111) Pulse Ox 98 O2 Delivery Room Air Capillary Refill : Height, Weight, BMI Height: '" Weight: lbs. oz. kg; BMI Method: General Appearance: No Apparent Distress, WD/WN, Obese Neck: Full Range of Motion, Normal Inspection Respiratory: No Accessory Muscle Use, No Respiratory Distress Gastrointestinal: Normal Bowel Sounds, Non Tender, Soft; No Abnormal Bowel Sounds, No Distended, No Guarding Extremity: Normal Capillary Refill, Normal Inspection Neurologic/Psychiatric: Alert, Oriented x3 Skin: Normal Color, Warm/Dry Progress/Results/Core Measures Results/Orders Lab Results Laboratory Tests Test 12/21/18 12:57 12/21/18 13:02 Range/Units White Blood Count 8.1 4.3-11.0 10^3/uL Red Blood Count 4.74 4.35-5.85 10^6/uL Hemoglobin 13.6 13.3-17.7 G/DL Hematocrit 41 40-54 % Mean Corpuscular Volume 86 80-99 FL Mean Corpuscular Hemoglobin 29 25-34 PG Mean Corpuscular Hemoglobin Concent 33 32-36 G/DL Red Cell Distribution Width 14.7 H 10.0-14.5 % Platelet Count 181 130-400 10^3/uL Mean Platelet Volume 11.0 H 7.4-10.4 FL Neutrophils (%) (Auto) 64 42-75 % Lymphocytes (%) (Auto) 23 12-44 % Monocytes (%) (Auto) 8 0-12 % Eosinophils (%) (Auto) 4 0-10 % Basophils (%) (Auto) 0 0-10 % Neutrophils # (Auto) 5.2 1.8-7.8 X 10^3 Lymphocytes # (Auto) 1.9 1.0-4.0 X 10^3 Monocytes # (Auto) 0.6 0.0-1.0 X 10^3 Eosinophils # (Auto) 0.4 H 0.0-0.3 10^3/uL Basophils # (Auto) 0.0 0.0-0.1 10^3/uL Sodium Level 140 135-145 MMOL/L Potassium Level 4.6 3.6-5.0 MMOL/L Chloride Level 106 98-107 MMOL/L Carbon Dioxide Level 23 21-32 MMOL/L Anion Gap 11 5-14 MMOL/L Blood Urea Nitrogen 13 7-18 MG/DL Creatinine 0.70 0.60-1.30 MG/DL Estimat Glomerular Filtration Rate > 60 BUN/Creatinine Ratio 19 Glucose Level 157 H 70-105 MG/DL Calcium Level 9.6 8.5-10.1 MG/DL Corrected Calcium 9.5 8.5-10.1 MG/DL Total Bilirubin 0.5 0.1-1.0 MG/DL Aspartate Amino Transf (AST/SGOT) 20 5-34 U/L Alanine Aminotransferase (ALT/SGPT) 23 0-55 U/L Alkaline Phosphatase 67 40-136 U/L Total Protein 6.6 6.4-8.2 GM/DL Albumin 4.1 3.2-4.5 GM/DL Urine Color YELLOW Urine Clarity SLIGHTLY CLOUDY Urine pH 5 5-9 Urine Specific [place] 1.025 H 1.016-1.022 Urine Protein 1+ H NEGATIVE Urine Glucose (UA) NEGATIVE NEGATIVE Urine Ketones 1+ H NEGATIVE Urine Nitrite NEGATIVE NEGATIVE Urine Bilirubin NEGATIVE NEGATIVE Urine Urobilinogen NORMAL NORMAL MG/DL Urine Leukocyte Esterase 1+ H NEGATIVE Urine RBC (Auto) NEGATIVE NEGATIVE Urine RBC NONE /HPF Urine WBC RARE /HPF Urine Squamous Epithelial Cells 5-10 /HPF Urine Crystals NONE /LPF Urine Bacteria TRACE /HPF Urine Casts NONE /LPF Urine Mucus NEGATIVE /LPF Urine Culture Indicated NO My Orders Orders - GREG LORA [employer] CLAIM ANALYST Cbc With Automated Diff (12/21/18 12:42) Comprehensive Metabolic Panel (12/21/18 12:42) Ua Culture If Indicated (12/21/18 12:42) Ed Iv/Invasive Line Start (12/21/18 12:42) Hydrocodone/Apap 5/325 Tablet (Lortab 5 (12/21/18 13:30) Ketorolac Injection (Toradol Injection) (12/21/18 13:30) Lumbar Spine - 2-3 Views (12/21/18 13:27) Medications Given in ED Current Medications Medications Dose Ordered Sig/Jose Route Start Time Stop Time Status Last Admin Dose Admin Acetaminophen/ Hydrocodone Bitart 1 tab ONCE ONCE PO 12/21/18 13:30 12/21/18 13:31 DC 12/21/18 13:32 1 TAB Ketorolac Tromethamine 15 mg ONCE ONCE IVP 12/21/18 13:30 12/21/18 13:31 DC 12/21/18 13:33 15 MG Vital Signs/I&O 12/21/18 13:10 Temp 98.5 Pulse 83 Resp 16 B/P (MAP) 155/89 (111) Pulse Ox 98 O2 Delivery Room Air Departure Communication (Admissions) Unfortunately due to [place] weight, 343 pounds, we are unable to perform any imaging studies here in way of CT as our current weight limit is 330 pounds. He does not have any red flags for back pain, his labs are unremarkable. We will achieve pain control, have him follow-up with primary care to arrange outpatient imaging studies at a facility with higher weight limit. Impression Primary Impression: Right low back pain Qualified Codes: M54.5 - Low back pain Disposition: 01 HOME, SELF-CARE Condition: Stable Departure-Patient Inst. Decision time for Depature: 13:29 Referrals: [facility] (PCP/Family) Primary Care Physician Patient Instructions: Low Back Pain in Adults Add. Discharge Instructions: 1. Unfortunately the weight limit of our CT scanner is 330 pounds. At this time you do not have any emergent findings on your clinical exam or blood work to warrant emergent transfer of you to another facility for CT imaging or MRI. However, if his pain persists, you should follow-up with your primary care provider to discuss obtaining imaging of this area of pain at one of the outpatient imaging centers in [place]. Take pain medication as directed. Return to ER for any concerns. Scripts Methocarbamol (Robaxin-750) 750 Mg Tablet 750 MG PO Q6H PRN for PAIN-MODERATE, #14 TAB Prov: GREG LORA APRN 12/21/18 Naproxen (Naprosyn) 500 Mg Tablet 500 MG PO BID PRN for PAIN-MODERATE TO SEVERE, #30 TAB 0 Refills Prov: GREG LORA APRN 12/21/18 Work/School Note: Work Release Form Date Seen in the Emergency Department: December 21, 2018 Return to Work: December 23, 2018 GREG LORA APRN December 21, 2018 12:46
[2018-12-21 13:09] LABS: BASOPHILS % (AUTO) 0 % (0-10); EOSINOPHILS # (AUTO) 0.4 10^3/uL (0.0-0.3); EOSINOPHILS % (AUTO) 4 % (0-10); HEMATOCRIT 41 % (40-54); HEMOGLOBIN 13.6 G/DL (13.3-17.7); LYMPHOCYTES # (AUTO) 1.9 X 10^3 (1.0-4.0); LYMPHOCYTES % (AUTO) 23 % (12-44); MEAN CORPUSCULAR HEMOGLOBIN 29 PG (25-34); MEAN CORPUSCULAR HGB CONC 33 G/DL (32-36); MEAN CORPUSCULAR VOLUME 86 FL (80-99); MONOCYTES # (AUTO) 0.6 X 10^3 (0.0-1.0); MONOCYTES % (AUTO) 8 % (0-12); NEUTROPHILS # (AUTO) 5.2 X 10^3 (1.8-7.8); NEUTROPHILS % (AUTO) 64 % (42-75); PLATELET COUNT 181 10^3/uL (130-400); RED CELL DISTRIBUTION WIDTH 14.7 % (10.0-14.5); WHITE BLOOD COUNT 8.1 10^3/uL (4.3-11.0)
[2018-12-21 13:12] LABS: BILIRUBIN,URINE NEGATIVE (NEGATIVE); CLARITY,URINE SLIGHTLY CLOUDY; COLOR,URINE YELLOW; GLUCOSE, URINE (UA) NEGATIVE (NEGATIVE); KETONES,URINE 1+ (NEGATIVE); LEUKOCYTE ESTERASE ,URINE 1+ (NEGATIVE); NITRITE,URINE NEGATIVE (NEGATIVE); PH,URINE 5 (5-9); PROTEIN,URINE 1+ (NEGATIVE); UROBILINOGEN,URINE NORMAL (NORMAL)
[2018-12-21 13:21] LABS: BACTERIA,URINE TRACE /HPF; WBC,URINE RARE /HPF
--- NOTE | 2018-12-21 13:25 | NUR ---
Pt reported weighing 325 lbs to nursing staff. Radiology weighed pt at 343 lbs and reported pt is too heavy for scanner. Musa Garcia notified.
[2018-12-21] MEDS ORDERED: KETOROLAC 30 MG/ML VIAL IVP ONE (13:30)
[2018-12-21] MEDS ORDERED: HYDROcodone/APAP 5 MG/325 MG (LORTAB) TAB PO ONE (13:30)
[2018-12-21 13:48] LABS: ALANINE AMINOTRANSFERASE 23 U/L (0-55); ALBUMIN 4.1 GM/DL (3.2-4.5); ALKALINE PHOSPHATASE 67 U/L (40-136); BILIRUBIN,TOTAL 0.5 MG/DL (0.1-1.0); BUN/CREATININE RATIO 19; CALCIUM 9.6 MG/DL (8.5-10.1); CARBON DIOXIDE 23 MMOL/L (21-32); CHLORIDE 106 MMOL/L (98-107); GFR ESTIMATED > 60; GLUCOSE 157 MG/DL (70-105); POTASSIUM 4.6 MMOL/L (3.6-5.0); SODIUM 140 MMOL/L (135-145); TOTAL PROTEIN 6.6 GM/DL (6.4-8.2)
--- NOTE | 2018-12-21 13:56 | Diagnostic Imaging Report ---
Indication: Low back pain. Time of exam: 1:45 PM Three views of the lumbar spine were obtained. Curvature and alignment is normal. Vertebral body heights are well maintained. No acute compression fracture seen. There is mild generalized lumbar spondylosis and marginal spurring. Lower thoracic degenerative changes also seen. Impression: Lumbar spondylosis. No acute bony abnormality is detected. Dictated by: Dictated on workstation # [id number]
[2018-12-21] MEDS ORDERED: NAPR-1071 PO (14:09)
[2018-12-21] MEDS ORDERED: METH-313 PO (14:09)
[2018-12-21 14:15] VITALS: BP 143/76
== END 2018-12-21 14:15 | disposition home or self-care (01) ==
LOC: ER 12:29
DX: M54.5 Low back pain (principal); Z88.4 Allergy status to anesthetic agent
CPT/HCPCS: 36415; 72100; 80053; 81000; 85025